=== PATIENT | female | born 1960 | race Caucasian/White ===

== ENCOUNTER 2019-06-17 13:22 | Inpatient (IN) | payer OTHER ==
[~2019-06-17] VITALS: Ht 175.3 cm; Wt 69.2 kg
[2019-06-17] MEDS ORDERED: LURA80 PO (13:44)
[2019-06-17] MEDS ORDERED: ADDE10 PO (13:44)
[2019-06-17] MEDS ORDERED: ALPR0.255 PO (13:44)
[2019-06-17] MEDS ORDERED: METH10 PO (13:44)
[2019-06-17] MEDS ORDERED: TRAZ150 PO (13:44)
[2019-06-17] MEDS ORDERED: GABA-533 PO (13:44)
[2019-06-17 14:27] LABS: BASOPHILS % (AUTO) 0.3 % (0.0-2.0); EOSINOPHILS % (AUTO) 1.6 % (1.0-6.0); HEMATOCRIT 45.1 % (36-46); HEMOGLOBIN 15.1 g/dL (12.0-16.0); LYMPHOCYTES # (AUTO) 1.2 K/uL (1.0-4.8); LYMPHOCYTES % (AUTO) 10.5 % (22.0-44.0); MEAN CORPUSCULAR HEMOGLOBIN 29.2 pg (26.0-34.0); MEAN CORPUSCULAR HGB CONC 33.5 G/dL (31.0-37.0); MEAN CORPUSCULAR VOLUME 87 fL (80-100); MONOCYTES # (AUTO) 0.4 K/uL (0.1-1.0); MONOCYTES % (AUTO) 3.7 % (2.0-9.0); NEUTROPHILS # (AUTO) 9.5 K/uL (1.8-7.7); NEUTROPHILS % (AUTO) 83.9 % (40.0-70.0); PLATELET COUNT (AUTO) 316 K/uL (150-450); RED BLOOD CELL COUNT(AUTO) 5.18 MIL/uL (4.00-5.20); RED CELL DISTRIBUTION WIDTH 14.8 % (11.5-14.5)
[2019-06-17] MEDS ORDERED: LIDOCAINE/PF 1% 30 ML VIAL INJ ONE (14:30)
[2019-06-17 14:40] LABS: ANION GAP 10 mmol/L (8-16); CALCIUM, TOTAL 9.5 mg/dL (8.8-10.5); CARBON DIOXIDE 29 mmol/L (22-29); CHLORIDE 101 mmol/L (98-107); CREATININE 0.73 mg/dL (0.60-1.30); GLOMERULAR FILTR. RATE CALC > 60 mL/min (>60); GLUCOSE,RANDOM 100 mg/dL (70-110); SODIUM SERUM 140 mmol/L (136-145); UREA NITROGEN, BLOOD 13 mg/dL (7-18)
[2019-06-17 14:45] LABS: ALANINE AMINOTRANSFERASE 15 U/L (12-78); ALBUMIN 3.9 g/dL (3.4-5.0); ALKALINE PHOSPHATASE 82 U/L (46-116); ASPARTATE AMINOTRANSFERASE 20 U/L (15-37); BILIRUBIN,TOTAL 0.5 mg/dL (0.1-1.0)
[2019-06-17] MEDS ORDERED: ONDANSETRON HCL 4 MG/2 ML VIAL IVP PRN (14:45)
[2019-06-17] MEDS ORDERED: KETOROLAC TROMETHAMINE 30 MG/ML VIAL IVP ONE (14:45)
[2019-06-17] MEDS ORDERED: 0.9% SODIUM CHLORIDE 10 ML SYRINGE IVP PRN ×2 (14:45→20:15)
[2019-06-17] MEDS ORDERED: ACETAMINOPHEN 325 MG TABLET PO PRN (14:45)
[2019-06-17] MEDS ORDERED: VANCOMYCIN HCL 1 GM/D5% WATER 200 ML IV ONE (14:45)
[2019-06-17 16:32] LABS: AMPHET/METH SCREEN,URINE POSITIVE (NEGATIVE); BARBITURATE SCREEN, URINE NEGATIVE (NEGATIVE); BENZODIAZEPINES SCREEN,URINE POSITIVE (NEGATIVE); CANNABINOID SCREEN,URINE POSITIVE (NEGATIVE); COCAINE SCREEN,URINE NEGATIVE (NEGATIVE); METHADONE SCREEN, URINE NEGATIVE (NEGATIVE); OPIATE SCREEN,URINE POSITIVE (NEGATIVE)
[2019-06-17 16:33] LABS: PHENCYCLIDINE SCREEN,URINE NEGATIVE (NEGATIVE)
[2019-06-17 17:59] VITALS: BP 154/96
[2019-06-17] MEDS ORDERED: OxyCODONE HCL/ACETAMINOPHEN 5-325 MG TABLET PO PRN (18:15)
[2019-06-17] MEDS ORDERED: INFLUENZA VIRUS VACCINE QVS 2019-20 (3YR+)/PF 60 MCG/0.5 ML SYRINGE IM ONE (18:45)
[2019-06-17 20:05] VITALS: BP 117/81
[2019-06-17] MEDS ORDERED: HydrOXYzine PAMOATE 50 MG CAPSULE PO PRN (20:15)
[2019-06-17] MEDS ORDERED: IBUPROFEN 600 MG TABLET PO PRN (20:15)
[2019-06-17] MEDS ORDERED: MAG HYDROX/AL HYDROX/SIMETH ES 30 ML SUSPENSION UDCUP PO PRN (20:15)
[2019-06-17] MEDS ORDERED: CloNIDine HCL 0.1 MG TABLET PO PRN (20:15)
[2019-06-17] MEDS: DOCUSATE SODIUM 100 MG CAPSULE PO SCH (21:00)
[2019-06-17] MEDS: CloNIDine HCL 0.1 MG TABLET PO SCH (21:03)
[2019-06-17] MEDS: OxyCODONE HCL/ACETAMINOPHEN 5-325 MG TABLET PO PRN ×2 (21:06→21:13)
[2019-06-17] MEDS: CefTRIAXone 1 GM/DEXTROSE 50 ML IV SCH (21:10)
[2019-06-17] MEDS: ALPRAZolam 0.25 MG TABLET PO SCH (21:10)
[2019-06-17] MEDS ORDERED: SODIUM CL IRRIG SOLN BOTTLE 250 ML IRRIG ONE (21:15)
[2019-06-17] MEDS: ONDANSETRON HCL 4 MG/2 ML VIAL IVP PRN (21:22)
[2019-06-18] VITALS (7 sets, daily range): BP systolic 95–129; BP diastolic 55–90
[2019-06-18] MEDS: CloNIDine HCL 0.1 MG TABLET PO SCH ×2 (05:17→11:16)
[2019-06-18] MEDS: ALPRAZolam 0.25 MG TABLET PO SCH ×2 (08:00→20:58)
[2019-06-18 08:05] LABS: BASOPHILS % (AUTO) 0.3 % (0.0-2.0); EOSINOPHILS % (AUTO) 2.7 % (1.0-6.0); HEMATOCRIT 38.7 % (36-46); HEMOGLOBIN 12.7 g/dL (12.0-16.0); LYMPHOCYTES # (AUTO) 2.3 K/uL (1.0-4.8); LYMPHOCYTES % (AUTO) 26.6 % (22.0-44.0); MEAN CORPUSCULAR HEMOGLOBIN 28.9 pg (26.0-34.0); MEAN CORPUSCULAR HGB CONC 32.8 G/dL (31.0-37.0); MEAN CORPUSCULAR VOLUME 88 fL (80-100); MONOCYTES # (AUTO) 0.5 K/uL (0.1-1.0); MONOCYTES % (AUTO) 5.6 % (2.0-9.0); NEUTROPHILS # (AUTO) 5.6 K/uL (1.8-7.7); NEUTROPHILS % (AUTO) 64.8 % (40.0-70.0); PLATELET COUNT (AUTO) 285 K/uL (150-450); RED CELL DISTRIBUTION WIDTH 14.9 % (11.5-14.5)
[2019-06-18 08:13] LABS: POTASSIUM 3.9 mmol/L (3.5-5.1)
[2019-06-18] MEDS ORDERED: FAMOTIDINE 10 MG/ML 2 ML VIAL IVP SCH (09:00)
[2019-06-18] MEDS: DOCUSATE SODIUM 100 MG CAPSULE PO SCH (09:00)
[2019-06-18] MEDS: MULTIVITAMINS WITH MINERALS, THERAPEUTIC TABLET PO SCH (11:16)
[2019-06-18] MEDS: OxyCODONE HCL/ACETAMINOPHEN 5-325 MG TABLET PO PRN (11:16)
[2019-06-18] MEDS ORDERED: MAG HYDROX/AL HYDROX/SIMETH ES 30 ML SUSPENSION UDCUP PO PRN (11:45)
[2019-06-18] MEDS ORDERED: DOCUSATE SODIUM 100 MG CAPSULE PO PRN (11:45)
[2019-06-18] MEDS ORDERED: CloNIDine HCL 0.1 MG TABLET PO PRN (11:45)
[2019-06-18] MEDS: SODIUM CHLORIDE 0.9% 1,000 ML IV SCH (12:28)
[2019-06-18] MEDS ORDERED: VANCOMYCIN HCL 1 GM/D5% WATER 200 ML IV ONE ×2 (13:00→22:00)
[2019-06-18] MEDS: LORazepam 2 MG/ML VIAL IVP PRN (16:42)
[2019-06-18] MEDS: CefTRIAXone 1 GM/DEXTROSE 50 ML IV SCH (20:58)
[2019-06-18] MEDS: FAMOTIDINE 10 MG/ML 2 ML VIAL IVP SCH (20:58)
[2019-06-18] MEDS: ChlordiazePOXIDE HCL 25 MG CAPSULE PO PRN (22:17)
[2019-06-19] VITALS (7 sets, daily range): BP systolic 104–126; BP diastolic 56–91
[2019-06-19] MEDS: OxyCODONE HCL/ACETAMINOPHEN 5-325 MG TABLET PO PRN ×2 (00:03→06:45)
[2019-06-19] MEDS: LORazepam 2 MG/ML VIAL IVP PRN ×2 (02:20→10:05)
[2019-06-19] MEDS: VANCOMYCIN HCL 1 GM/D5% WATER 200 ML IV SCH ×2 (07:00→17:38)
[2019-06-19 07:47] LABS: ANION GAP 7 mmol/L (8-16); CALCIUM, TOTAL 8.9 mg/dL (8.8-10.5); CARBON DIOXIDE 30 mmol/L (22-29); CHLORIDE 104 mmol/L (98-107); CREATININE 0.91 mg/dL (0.60-1.30); GLOMERULAR FILTR. RATE CALC > 60 mL/min (>60); GLUCOSE,RANDOM 91 mg/dL (70-110); SODIUM SERUM 141 mmol/L (136-145); UREA NITROGEN, BLOOD 9 mg/dL (7-18)
[2019-06-19 07:52] LABS: BASOPHILS % (AUTO) 0.5 % (0.0-2.0); EOSINOPHILS % (AUTO) 6.3 % (1.0-6.0); HEMATOCRIT 38.7 % (36-46); HEMOGLOBIN 12.9 g/dL (12.0-16.0); LYMPHOCYTES # (AUTO) 2.5 K/uL (1.0-4.8); MEAN CORPUSCULAR HEMOGLOBIN 29.2 pg (26.0-34.0); MEAN CORPUSCULAR HGB CONC 33.4 G/dL (31.0-37.0); MEAN CORPUSCULAR VOLUME 88 fL (80-100); MONOCYTES # (AUTO) 0.4 K/uL (0.1-1.0); MONOCYTES % (AUTO) 5.6 % (2.0-9.0); NEUTROPHILS # (AUTO) 4.1 K/uL (1.8-7.7); NEUTROPHILS % (AUTO) 54.6 % (40.0-70.0); PLATELET COUNT (AUTO) 250 K/uL (150-450); RED BLOOD CELL COUNT(AUTO) 4.42 MIL/uL (4.00-5.20); RED CELL DISTRIBUTION WIDTH 15.3 % (11.5-14.5)
[2019-06-19] MEDS: MULTIVITAMINS WITH MINERALS, THERAPEUTIC TABLET PO SCH (08:24)
[2019-06-19] MEDS: ALPRAZolam 0.25 MG TABLET PO SCH ×2 (08:24→20:36)
[2019-06-19] MEDS: FOLIC ACID 1 MG TABLET PO SCH (08:24)
[2019-06-19] MEDS: ACETAMINOPHEN 325 MG TABLET PO PRN (08:24)
[2019-06-19] MEDS: FAMOTIDINE 10 MG/ML 2 ML VIAL IVP SCH ×2 (08:24→20:36)
[2019-06-19] MEDS: THIAMINE HCL 100 MG TABLET PO SCH (08:25)
[2019-06-19] MEDS: SODIUM CHLORIDE 0.9% 1,000 ML IV SCH (10:05)
[2019-06-19] MEDS ORDERED: DICYCLOMINE HCL 10 MG CAPSULE PO PRN (11:45)
[2019-06-19] MEDS ORDERED: LURASIDONE HCL 40 MG TABLET PO ONE (12:30)
[2019-06-19] MEDS: ESCITALOPRAM OXALATE 10 MG TABLET PO SCH (12:58)
[2019-06-19] MEDS: NICOTINE 21 MG/24 HOUR PATCH TD SCH (12:59)
[2019-06-19] MEDS: GABAPENTIN 100 MG CAPSULE PO SCH ×2 (16:29→20:36)
[2019-06-19] MEDS: IBUPROFEN 400 MG TABLET PO PRN (16:29)
[2019-06-19] MEDS: ChlordiazePOXIDE HCL 25 MG CAPSULE PO PRN (16:45)
[2019-06-19] MEDS: CefTRIAXone 1 GM/DEXTROSE 50 ML IV SCH (20:35)
[2019-06-20] VITALS (7 sets, daily range): BP systolic 117–148; BP diastolic 19–96
[2019-06-20] MEDS: IBUPROFEN 400 MG TABLET PO PRN (00:54)
[2019-06-20 04:06] LABS: HIV 1-2 SCREEN 4TH GEN W/RFLX Non Reactive (Non Reactive)
[2019-06-20] MEDS: ACETAMINOPHEN 325 MG TABLET PO PRN (05:18)
[2019-06-20] MEDS: VANCOMYCIN HCL 1 GM/D5% WATER 200 ML IV SCH ×2 (06:29→18:26)
[2019-06-20 07:56] LABS: BASOPHILS % (AUTO) 0.5 % (0.0-2.0); HEMATOCRIT 36.7 % (36-46); HEMOGLOBIN 12.5 g/dL (12.0-16.0); LYMPHOCYTES % (AUTO) 26.1 % (22.0-44.0); MEAN CORPUSCULAR HEMOGLOBIN 29.9 pg (26.0-34.0); MEAN CORPUSCULAR VOLUME 88 fL (80-100); MONOCYTES # (AUTO) 0.5 K/uL (0.1-1.0); NEUTROPHILS # (AUTO) 4.7 K/uL (1.8-7.7); NEUTROPHILS % (AUTO) 60.4 % (40.0-70.0); PLATELET COUNT (AUTO) 243 K/uL (150-450); RED BLOOD CELL COUNT(AUTO) 4.18 MIL/uL (4.00-5.20); RED CELL DISTRIBUTION WIDTH 14.9 % (11.5-14.5)
[2019-06-20] MEDS: MULTIVITAMINS WITH MINERALS, THERAPEUTIC TABLET PO SCH (08:03)
[2019-06-20] MEDS: LURASIDONE HCL 40 MG TABLET PO SCH (08:03)
[2019-06-20] MEDS: ESCITALOPRAM OXALATE 10 MG TABLET PO SCH (08:03)
[2019-06-20] MEDS: ALPRAZolam 0.25 MG TABLET PO SCH ×2 (08:03→20:12)
[2019-06-20] MEDS: THIAMINE HCL 100 MG TABLET PO SCH (08:03)
[2019-06-20] MEDS: NICOTINE 21 MG/24 HOUR PATCH TD SCH (08:04)
[2019-06-20] MEDS: SODIUM CHLORIDE 0.9% 1,000 ML IV SCH (08:05)
[2019-06-20] MEDS: FAMOTIDINE 10 MG/ML 2 ML VIAL IVP SCH ×2 (08:05→23:27)
[2019-06-20] MEDS: GABAPENTIN 100 MG CAPSULE PO SCH ×3 (08:05→20:12)
[2019-06-20] MEDS: FOLIC ACID 1 MG TABLET PO SCH (08:06)
[2019-06-20 08:22] LABS: CALCIUM, TOTAL 8.4 mg/dL (8.8-10.5); CREATININE 0.96 mg/dL (0.60-1.30); POTASSIUM 4.3 mmol/L (3.5-5.1); VANCOMYCIN,RANDOM 24.3 mcg/mL (25.0-50.0)
[2019-06-21 05:10] VITALS: BP 129/89
[2019-06-21] MEDS: IBUPROFEN 400 MG TABLET PO PRN ×2 (05:58→16:39)
[2019-06-21] MEDS: VANCOMYCIN HCL 1 GM/D5% WATER 200 ML IV SCH ×2 (07:09→19:18)
[2019-06-21 07:40] VITALS: BP 154/86
[2019-06-21 08:07] LABS: BASOPHILS % (AUTO) 0.7 % (0.0-2.0); EOSINOPHILS % (AUTO) 8.5 % (1.0-6.0); HEMATOCRIT 37.7 % (36-46); HEMOGLOBIN 12.5 g/dL (12.0-16.0); MEAN CORPUSCULAR HEMOGLOBIN 29.2 pg (26.0-34.0); MEAN CORPUSCULAR HGB CONC 33.2 G/dL (31.0-37.0); MEAN CORPUSCULAR VOLUME 88 fL (80-100); MONOCYTES # (AUTO) 0.5 K/uL (0.1-1.0); MONOCYTES % (AUTO) 6.7 % (2.0-9.0); NEUTROPHILS # (AUTO) 4.1 K/uL (1.8-7.7); NEUTROPHILS % (AUTO) 56.1 % (40.0-70.0); PLATELET COUNT (AUTO) 247 K/uL (150-450); RED CELL DISTRIBUTION WIDTH 14.9 % (11.5-14.5)
[2019-06-21] MEDS ORDERED: FAMOTIDINE 20 MG TABLET ONE (08:11)
[2019-06-21 08:19] LABS: ANION GAP 3 mmol/L (8-16); CALCIUM, TOTAL 8.9 mg/dL (8.8-10.5); CARBON DIOXIDE 34 mmol/L (22-29); CHLORIDE 100 mmol/L (98-107); CREATININE 0.76 mg/dL (0.60-1.30); GLOMERULAR FILTR. RATE CALC > 60 mL/min (>60); GLUCOSE,RANDOM 96 mg/dL (70-110); POTASSIUM 4.2 mmol/L (3.5-5.1); SODIUM SERUM 137 mmol/L (136-145); UREA NITROGEN, BLOOD 10 mg/dL (7-18); VANCOMYCIN,RANDOM 11.4 mcg/mL (25.0-50.0)
[2019-06-21] MEDS: FOLIC ACID 1 MG TABLET PO SCH (08:21)
[2019-06-21] MEDS: ESCITALOPRAM OXALATE 10 MG TABLET PO SCH (08:21)
[2019-06-21] MEDS: THIAMINE HCL 100 MG TABLET PO SCH (08:22)
[2019-06-21] MEDS: MULTIVITAMINS WITH MINERALS, THERAPEUTIC TABLET PO SCH (08:22)
[2019-06-21] MEDS: ALPRAZolam 0.25 MG TABLET PO SCH (08:22)
[2019-06-21] MEDS: GABAPENTIN 100 MG CAPSULE PO SCH ×3 (08:22→20:55)
[2019-06-21] MEDS: NICOTINE 21 MG/24 HOUR PATCH TD SCH (08:23)
[2019-06-21] MEDS: FAMOTIDINE 10 MG/ML 2 ML VIAL IVP SCH ×2 (08:34→20:55)
[2019-06-21] MEDS: LURASIDONE HCL 40 MG TABLET PO SCH (08:34)
[2019-06-21 11:20] VITALS: BP 132/91
[2019-06-21 15:20] VITALS: BP 102/82
[2019-06-21 19:28] VITALS: BP 128/88
[2019-06-21] MEDS: LORATADINE 10 MG TABLET PO PRN (21:38)
[2019-06-21 23:48] VITALS: BP 128/86
[2019-06-22 04:52] VITALS: BP 117/87
[2019-06-22] MEDS: VANCOMYCIN HCL 1 GM/D5% WATER 200 ML IV SCH ×2 (06:19→18:06)
[2019-06-22 07:31] LABS: ANION GAP 4 mmol/L (8-16); CALCIUM, TOTAL 8.9 mg/dL (8.8-10.5); CARBON DIOXIDE 33 mmol/L (22-29); CHLORIDE 100 mmol/L (98-107); CREATININE 0.92 mg/dL (0.60-1.30); GLOMERULAR FILTR. RATE CALC > 60 mL/min (>60); GLUCOSE,RANDOM 130 mg/dL (70-110); POTASSIUM 4.1 mmol/L (3.5-5.1); SODIUM SERUM 137 mmol/L (136-145); UREA NITROGEN, BLOOD 15 mg/dL (7-18)
[2019-06-22 08:06] VITALS: BP 131/82
[2019-06-22] MEDS: FOLIC ACID 1 MG TABLET PO SCH (08:32)
[2019-06-22] MEDS: ESCITALOPRAM OXALATE 10 MG TABLET PO SCH (08:32)
[2019-06-22] MEDS: MULTIVITAMINS WITH MINERALS, THERAPEUTIC TABLET PO SCH (08:33)
[2019-06-22] MEDS: GABAPENTIN 100 MG CAPSULE PO SCH ×3 (08:33→21:09)
[2019-06-22] MEDS: THIAMINE HCL 100 MG TABLET PO SCH (08:33)
[2019-06-22] MEDS: NICOTINE 21 MG/24 HOUR PATCH TD SCH (08:34)
[2019-06-22] MEDS: FAMOTIDINE 10 MG/ML 2 ML VIAL IVP SCH ×2 (08:34→21:09)
[2019-06-22] MEDS: LURASIDONE HCL 40 MG TABLET PO SCH (08:39)
[2019-06-22 11:24] VITALS: BP 117/73
[2019-06-22] MEDS ORDERED: SENNA/DOCUSATE SODIUM 8.6-50 MG TABLET PO PRN (14:00)
[2019-06-22] MEDS: DOCUSATE SODIUM 100 MG CAPSULE PO SCH ×2 (15:00→21:09)
[2019-06-22] MEDS: ESTRADIOL 1 MG TABLET PO SCH (15:00)
[2019-06-22 16:26] VITALS: BP 121/77
[2019-06-22 20:15] VITALS: BP 120/77
[2019-06-22] MEDS: IBUPROFEN 400 MG TABLET PO PRN (21:18)
[2019-06-22] MEDS: DIAZEPAM 5 MG TABLET PO PRN (21:18)
[2019-06-22] MEDS: LORATADINE 10 MG TABLET PO PRN (21:19)
[2019-06-22 23:07] VITALS: BP 113/81
[2019-06-23] MEDS ORDERED: SODIUM CHLORIDE 0.9% 1,000 ML ONE (01:11)
[2019-06-23 04:08] VITALS: BP 135/99
[2019-06-23] MEDS: DIAZEPAM 5 MG TABLET PO PRN ×3 (04:35→18:08)
[2019-06-23] MEDS: VANCOMYCIN HCL 1 GM/D5% WATER 200 ML IV SCH ×2 (06:48→18:08)
[2019-06-23 07:16] LABS: CALCIUM, TOTAL 8.8 mg/dL (8.8-10.5); CREATININE 0.97 mg/dL (0.60-1.30); POTASSIUM 4.3 mmol/L (3.5-5.1)
[2019-06-23 07:40] VITALS: BP 134/91
[2019-06-23] MEDS: NICOTINE 21 MG/24 HOUR PATCH TD SCH (08:17)
[2019-06-23] MEDS: ESTRADIOL 1 MG TABLET PO SCH (08:18)
[2019-06-23] MEDS: ESCITALOPRAM OXALATE 10 MG TABLET PO SCH (08:18)
[2019-06-23] MEDS: DOCUSATE SODIUM 100 MG CAPSULE PO SCH ×3 (08:18→20:16)
[2019-06-23] MEDS: MULTIVITAMINS WITH MINERALS, THERAPEUTIC TABLET PO SCH (08:18)
[2019-06-23] MEDS: THIAMINE HCL 100 MG TABLET PO SCH (08:18)
[2019-06-23] MEDS: LURASIDONE HCL 40 MG TABLET PO SCH (08:18)
[2019-06-23] MEDS: GABAPENTIN 100 MG CAPSULE PO SCH ×3 (08:18→20:04)
[2019-06-23] MEDS: FAMOTIDINE 10 MG/ML 2 ML VIAL IVP SCH ×2 (08:18→20:05)
[2019-06-23] MEDS: FOLIC ACID 1 MG TABLET PO SCH (08:18)
[2019-06-23 11:39] VITALS: BP 120/83
[2019-06-23 15:27] VITALS: BP 137/90
[2019-06-23] MEDS ORDERED: MAGNESIUM HYDROXIDE SUSPENSION 30 ML UDCUP PO ONE (16:00)
[2019-06-23] MEDS: LORATADINE 10 MG TABLET PO PRN (20:04)
[2019-06-23] MEDS: IBUPROFEN 400 MG TABLET PO PRN (20:05)
[2019-06-23 20:18] VITALS: BP 132/95
[2019-06-24] VITALS (7 sets, daily range): BP systolic 106–152; BP diastolic 79–107
[2019-06-24] MEDS: DIAZEPAM 5 MG TABLET PO PRN ×3 (00:39→16:20)
[2019-06-24] MEDS: IBUPROFEN 400 MG TABLET PO PRN (00:45)
[2019-06-24] MEDS: ONDANSETRON HCL 4 MG/2 ML VIAL IVP PRN (04:03)
[2019-06-24] MEDS: VANCOMYCIN HCL 1 GM/D5% WATER 200 ML IV SCH ×2 (07:00→18:25)
[2019-06-24 07:42] LABS: CREATININE 1.08 mg/dL (0.60-1.30); VANCOMYCIN,RANDOM 10.2 mcg/mL (25.0-50.0)
[2019-06-24] MEDS: GABAPENTIN 100 MG CAPSULE PO SCH (08:10)
[2019-06-24] MEDS: NICOTINE 21 MG/24 HOUR PATCH TD SCH (08:11)
[2019-06-24] MEDS: MULTIVITAMINS WITH MINERALS, THERAPEUTIC TABLET PO SCH (08:11)
[2019-06-24] MEDS: LORATADINE 10 MG TABLET PO PRN (08:11)
[2019-06-24] MEDS: LURASIDONE HCL 40 MG TABLET PO SCH (08:11)
[2019-06-24] MEDS: FAMOTIDINE 10 MG/ML 2 ML VIAL IVP SCH (08:11)
[2019-06-24] MEDS: ESCITALOPRAM OXALATE 10 MG TABLET PO SCH (08:11)
[2019-06-24] MEDS: THIAMINE HCL 100 MG TABLET PO SCH (08:11)
[2019-06-24] MEDS: ESTRADIOL 1 MG TABLET PO SCH (08:11)
[2019-06-24] MEDS: FOLIC ACID 1 MG TABLET PO SCH (08:11)
[2019-06-24] MEDS: DOCUSATE SODIUM 100 MG CAPSULE PO SCH ×2 (08:16→20:28)
[2019-06-24] MEDS: GABAPENTIN 300 MG CAPSULE PO SCH ×2 (16:20→20:26)
[2019-06-25] MEDS: DIAZEPAM 5 MG TABLET PO PRN ×3 (00:04→16:39)
[2019-06-25] MEDS: FAMOTIDINE 10 MG/ML 2 ML VIAL IVP SCH ×3 (00:05→21:19)
[2019-06-25 05:52] VITALS: BP 111/82
[2019-06-25] MEDS: VANCOMYCIN HCL 1 GM/D5% WATER 200 ML IV SCH ×2 (06:27→18:24)
[2019-06-25] MEDS: IBUPROFEN 400 MG TABLET PO PRN (06:38)
[2019-06-25 07:54] VITALS: BP 105/73
[2019-06-25] MEDS: ESTRADIOL 1 MG TABLET PO SCH (08:49)
[2019-06-25] MEDS: NICOTINE 21 MG/24 HOUR PATCH TD SCH (08:49)
[2019-06-25] MEDS: LamoTRIgine 25 MG TABLET PO SCH (08:50)
[2019-06-25] MEDS: GABAPENTIN 300 MG CAPSULE PO SCH ×3 (08:50→21:17)
[2019-06-25] MEDS: MULTIVITAMINS WITH MINERALS, THERAPEUTIC TABLET PO SCH (08:50)
[2019-06-25] MEDS: CITALOPRAM HYDROBROMIDE 20 MG TABLET PO SCH (08:50)
[2019-06-25] MEDS: DOCUSATE SODIUM 100 MG CAPSULE PO SCH ×2 (08:50→21:00)
[2019-06-25] MEDS: THIAMINE HCL 100 MG TABLET PO SCH (08:50)
[2019-06-25] MEDS: FOLIC ACID 1 MG TABLET PO SCH (08:50)
[2019-06-25 11:36] VITALS: BP 103/71
[2019-06-25 15:32] VITALS: BP 119/88
[2019-06-25 19:30] VITALS: BP 114/76
[2019-06-26] MEDS: DIAZEPAM 5 MG TABLET PO PRN ×2 (01:23→20:35)
[2019-06-26] MEDS: IBUPROFEN 400 MG TABLET PO PRN (04:18)
[2019-06-26] MEDS: VANCOMYCIN HCL 1 GM/D5% WATER 200 ML IV SCH ×2 (06:47→18:38)
[2019-06-26 08:02] LABS: CALCIUM, TOTAL 9.1 mg/dL (8.8-10.5); CREATININE 0.95 mg/dL (0.60-1.30); POTASSIUM 4.4 mmol/L (3.5-5.1)
[2019-06-26 08:03] VITALS: BP 107/77
[2019-06-26] MEDS: FOLIC ACID 1 MG TABLET PO SCH (08:26)
[2019-06-26] MEDS: MULTIVITAMINS WITH MINERALS, THERAPEUTIC TABLET PO SCH (08:26)
[2019-06-26] MEDS: GABAPENTIN 300 MG CAPSULE PO SCH ×3 (08:26→20:34)
[2019-06-26] MEDS: DOCUSATE SODIUM 100 MG CAPSULE PO SCH ×2 (08:26→20:34)
[2019-06-26] MEDS: CITALOPRAM HYDROBROMIDE 20 MG TABLET PO SCH (08:26)
[2019-06-26] MEDS: LamoTRIgine 25 MG TABLET PO SCH (08:27)
[2019-06-26] MEDS: NICOTINE 21 MG/24 HOUR PATCH TD SCH (08:27)
[2019-06-26] MEDS: THIAMINE HCL 100 MG TABLET PO SCH (08:27)
[2019-06-26] MEDS: FAMOTIDINE 10 MG/ML 2 ML VIAL IVP SCH ×2 (08:28→20:35)
[2019-06-26] MEDS: ESTRADIOL 1 MG TABLET PO SCH (08:28)
[2019-06-26 11:58] VITALS: BP 133/88
[2019-06-26 16:57] VITALS: BP 108/71
[2019-06-26 20:49] VITALS: BP 123/79
[2019-06-27] MEDS: DiphenhydrAMINE HCL 25 MG CAPSULE PO PRN ×2 (00:27→22:21)
[2019-06-27 00:42] VITALS: BP 100/69
[2019-06-27 04:42] VITALS: BP 104/71
[2019-06-27] MEDS: VANCOMYCIN HCL 1 GM/D5% WATER 200 ML IV SCH ×2 (06:08→18:36)
[2019-06-27 07:45] VITALS: BP 103/76
[2019-06-27] MEDS: NICOTINE 21 MG/24 HOUR PATCH TD SCH (09:10)
[2019-06-27] MEDS: ESTRADIOL 1 MG TABLET PO SCH (09:11)
[2019-06-27] MEDS: DOCUSATE SODIUM 100 MG CAPSULE PO SCH ×2 (09:11→20:28)
[2019-06-27] MEDS: GABAPENTIN 300 MG CAPSULE PO SCH ×3 (09:12→20:29)
[2019-06-27] MEDS: CITALOPRAM HYDROBROMIDE 20 MG TABLET PO SCH (09:12)
[2019-06-27] MEDS: FAMOTIDINE 10 MG/ML 2 ML VIAL IVP SCH ×2 (09:12→20:29)
[2019-06-27] MEDS: FOLIC ACID 1 MG TABLET PO SCH (09:12)
[2019-06-27] MEDS: MULTIVITAMINS WITH MINERALS, THERAPEUTIC TABLET PO SCH (09:12)
[2019-06-27] MEDS: THIAMINE HCL 100 MG TABLET PO SCH (09:12)
[2019-06-27] MEDS: LamoTRIgine 25 MG TABLET PO SCH (09:12)
[2019-06-27] MEDS: DIAZEPAM 5 MG TABLET PO PRN ×2 (11:17→20:32)
[2019-06-27 11:53] VITALS: BP 122/75
[2019-06-27 15:44] VITALS: BP 116/71
[2019-06-27 21:00] VITALS: BP 131/89
[2019-06-27] MEDS: IBUPROFEN 400 MG TABLET PO PRN (22:22)
[2019-06-28] VITALS (7 sets, daily range): BP systolic 100–132; BP diastolic 68–89
[2019-06-28] MEDS: VANCOMYCIN HCL 1 GM/D5% WATER 200 ML IV SCH ×2 (05:16→18:01)
[2019-06-28] MEDS: IBUPROFEN 400 MG TABLET PO PRN ×2 (05:16→18:25)
[2019-06-28 06:58] LABS: CREATININE 0.97 mg/dL (0.60-1.30); POTASSIUM 4.2 mmol/L (3.5-5.1); VANCOMYCIN,RANDOM 12.1 mcg/mL (25.0-50.0)
[2019-06-28] MEDS: FAMOTIDINE 10 MG/ML 2 ML VIAL IVP SCH ×2 (09:44→20:11)
[2019-06-28] MEDS: THIAMINE HCL 100 MG TABLET PO SCH (09:44)
[2019-06-28] MEDS: ESTRADIOL 1 MG TABLET PO SCH (09:45)
[2019-06-28] MEDS: GABAPENTIN 300 MG CAPSULE PO SCH ×3 (09:45→20:11)
[2019-06-28] MEDS: CITALOPRAM HYDROBROMIDE 20 MG TABLET PO SCH (09:45)
[2019-06-28] MEDS: LamoTRIgine 25 MG TABLET PO SCH (09:45)
[2019-06-28] MEDS: FOLIC ACID 1 MG TABLET PO SCH (09:45)
[2019-06-28] MEDS: MULTIVITAMINS WITH MINERALS, THERAPEUTIC TABLET PO SCH (09:45)
[2019-06-28] MEDS: DOCUSATE SODIUM 100 MG CAPSULE PO SCH ×2 (09:46→20:11)
[2019-06-28] MEDS: NICOTINE 21 MG/24 HOUR PATCH TD SCH (15:57)
[2019-06-28] MEDS: DIAZEPAM 5 MG TABLET PO PRN (18:57)
[2019-06-28] MEDS: DiphenhydrAMINE HCL 25 MG CAPSULE PO PRN (21:02)
[2019-06-28] MEDS: ACETAMINOPHEN 325 MG TABLET PO PRN (23:11)
[2019-06-29 05:08] VITALS: BP 114/79
[2019-06-29] MEDS ORDERED: SODIUM CHLORIDE 0.9% 500 ML IV ONE (05:53)
[2019-06-29] MEDS: VANCOMYCIN HCL 1 GM/D5% WATER 200 ML IV SCH ×2 (06:02→18:11)
[2019-06-29] MEDS: IBUPROFEN 400 MG TABLET PO PRN ×2 (06:02→20:14)
[2019-06-29] MEDS: DIAZEPAM 5 MG TABLET PO PRN (06:10)
[2019-06-29 08:00] VITALS: BP 125/85
[2019-06-29 09:32] LABS: CALCIUM, TOTAL 8.8 mg/dL (8.8-10.5); CREATININE 1.12 mg/dL (0.60-1.30)
[2019-06-29] MEDS: FAMOTIDINE 10 MG/ML 2 ML VIAL IVP SCH ×2 (09:54→20:14)
[2019-06-29] MEDS: FOLIC ACID 1 MG TABLET PO SCH (09:56)
[2019-06-29] MEDS: THIAMINE HCL 100 MG TABLET PO SCH (09:56)
[2019-06-29] MEDS: MULTIVITAMINS WITH MINERALS, THERAPEUTIC TABLET PO SCH (09:56)
[2019-06-29] MEDS: ESTRADIOL 1 MG TABLET PO SCH (09:56)
[2019-06-29] MEDS: CITALOPRAM HYDROBROMIDE 20 MG TABLET PO SCH (09:57)
[2019-06-29] MEDS: DOCUSATE SODIUM 100 MG CAPSULE PO SCH ×2 (09:57→20:14)
[2019-06-29] MEDS: LamoTRIgine 25 MG TABLET PO SCH (09:57)
[2019-06-29] MEDS: GABAPENTIN 300 MG CAPSULE PO SCH ×3 (09:57→20:15)
[2019-06-29] MEDS: NICOTINE 21 MG/24 HOUR PATCH TD SCH (09:58)
[2019-06-29 11:24] VITALS: BP 133/90
[2019-06-29] MEDS ORDERED: DIAZEPAM 5 MG TABLET PO ONE (14:45)
[2019-06-29 15:54] VITALS: BP 127/108
[2019-06-29] MEDS ORDERED: DIPH50 PO (17:20)
[2019-06-29] MEDS ORDERED: GABA-531 PO (17:20)
[2019-06-29] MEDS ORDERED: LAMO25TA25 PO (17:22)
[2019-06-29] MEDS ORDERED: CITA-106 PO (17:22)
[2019-06-29] MEDS ORDERED: BACTDSB PO (17:23)
[2019-06-29] MEDS ORDERED: ESTR-28 PO (17:23)
[2019-06-29 20:05] VITALS: BP 127/85
[2019-06-29] MEDS ORDERED: DiphenhydrAMINE HCL 25 MG CAPSULE PO SCH (21:00)
[2019-06-29 22:35] LABS: APPEARANCE,URINE CLEAR (CLEAR); BILIRUBIN,URINE NEGATIVE (NEGATIVE); GLUCOSE, URINE (UA) NEGATIVE (NEGATIVE); KETONES,URINE NEGATIVE (NEGATIVE); LEUKOCYTE ESTERASE ,URINE NEGATIVE (NEGATIVE); NITRATE,URINE NEGATIVE (NEGATIVE); OCCULT BLOOD,URINE NEGATIVE (NEGATIVE); PH,URINE 7.5 (5.0-8.0); PROTEIN,URINE NEGATIVE (NEGATIVE); UROBILINOGEN,URINE 0.2 mg/dL (<=1.0)
[2019-06-30] MEDS ORDERED: SODIUM CHLORIDE 0.9% 100 ML ONE (03:26)
[2019-06-30] MEDS ORDERED: IOVERSOL 350 MG/ML 100 ML VIAL ONE (03:26)
[2019-06-30 04:33] VITALS: BP 135/96
[2019-06-30] MEDS: VANCOMYCIN HCL 1 GM/D5% WATER 200 ML IV SCH (06:08)
[2019-06-30] MEDS: IBUPROFEN 400 MG TABLET PO PRN ×2 (06:08→14:50)
[2019-06-30] MEDS ORDERED: DIAZEPAM 5 MG TABLET PO ONE (06:30)
[2019-06-30 07:37] LABS: BASOPHILS % (AUTO) 0.7 % (0.0-2.0); HEMATOCRIT 38.4 % (36-46); HEMOGLOBIN 12.9 g/dL (12.0-16.0); LYMPHOCYTES # (AUTO) 1.6 K/uL (1.0-4.8); LYMPHOCYTES % (AUTO) 21.6 % (22.0-44.0); MEAN CORPUSCULAR HEMOGLOBIN 29.2 pg (26.0-34.0); MEAN CORPUSCULAR HGB CONC 33.6 G/dL (31.0-37.0); MEAN CORPUSCULAR VOLUME 87 fL (80-100); MONOCYTES # (AUTO) 0.5 K/uL (0.1-1.0); MONOCYTES % (AUTO) 7.2 % (2.0-9.0); NEUTROPHILS # (AUTO) 4.6 K/uL (1.8-7.7); NEUTROPHILS % (AUTO) 60.5 % (40.0-70.0); PLATELET COUNT (AUTO) 212 K/uL (150-450); RED BLOOD CELL COUNT(AUTO) 4.41 MIL/uL (4.00-5.20)
[2019-06-30 07:58] LABS: ALBUMIN 3.4 g/dL (3.4-5.0); BILIRUBIN,TOTAL 0.2 mg/dL (0.1-1.0); CALCIUM, TOTAL 8.6 mg/dL (8.8-10.5); CREATININE 1.01 mg/dL (0.60-1.30); MAGNESIUM 1.8 mg/dL (1.80-2.40); POTASSIUM 3.8 mmol/L (3.5-5.1); TOTAL PROTEIN, SERUM 6.9 g/dL (6.4-8.2)
[2019-06-30 08:00] VITALS: BP 118/84
[2019-06-30] MEDS: DOCUSATE SODIUM 100 MG CAPSULE PO SCH (09:00)
[2019-06-30] MEDS: LamoTRIgine 25 MG TABLET PO SCH (10:02)
[2019-06-30] MEDS: THIAMINE HCL 100 MG TABLET PO SCH (10:02)
[2019-06-30] MEDS: NICOTINE 21 MG/24 HOUR PATCH TD SCH (10:02)
[2019-06-30] MEDS: ESTRADIOL 1 MG TABLET PO SCH (10:02)
[2019-06-30] MEDS: MULTIVITAMINS WITH MINERALS, THERAPEUTIC TABLET PO SCH (10:03)
[2019-06-30] MEDS: GABAPENTIN 300 MG CAPSULE PO SCH (10:03)
[2019-06-30] MEDS: FAMOTIDINE 10 MG/ML 2 ML VIAL IVP SCH (10:03)
[2019-06-30] MEDS: CITALOPRAM HYDROBROMIDE 20 MG TABLET PO SCH (10:03)
[2019-06-30] MEDS: FOLIC ACID 1 MG TABLET PO SCH (10:03)
[2019-06-30 11:51] VITALS: BP 108/104
== END 2019-06-30 14:55 | DRG 897 ==
LOC: EMS 13:23 → 6S 15:45
PROVIDERS: ADMIT Internal Medicine; ATTEND Internal Medicine
DX: F11.10 Opioid abuse, uncomplicated (principal); L02.31 Cutaneous abscess of buttock; F31.4 Bipolar disorder, current episode depressed, severe, without psychotic features; F13.20 Sedative, hypnotic or anxiolytic dependence, uncomplicated; G89.29 Other chronic pain; M54.9 Dorsalgia, unspecified; B19.20 Unspecified viral hepatitis C without hepatic coma; F17.210 Nicotine dependence, cigarettes, uncomplicated; F15.10 Other stimulant abuse, uncomplicated; N95.1 Menopausal and female climacteric states
CPT/HCPCS: 74177; 74181; 83735; 84145; 87040; 87070; 87081; 87205; 87389; 93306; 96365; G0480; J0696; J1885; J2060; J2405; J3370; J3490; J7030; J7040; J7050

== ENCOUNTER 2019-07-09 02:12 | Inpatient (IN) | payer OTHER ==
[~2019-07-09] VITALS: Ht 175.3 cm; Wt 68.4 kg
[~2019-07-09 02:12] MED LIST: BACTDSB PO; CITA-106 PO; DIPH50 PO; ESTR-28 PO; GABA-531 PO; LAMO25TA25 PO
[2019-07-09] MEDS ORDERED: ONDANSETRON HCL 4 MG TABLET PO ONE (03:00)
[2019-07-09] MEDS ORDERED: IBUPROFEN 600 MG TABLET PO ONE (03:00)
[2019-07-09] MEDS ORDERED: ACETAMINOPHEN 500 MG TABLET PO ONE (03:00)
[2019-07-09 03:22] LABS: AMPHET/METH SCREEN,URINE NEGATIVE (NEGATIVE); BARBITURATE SCREEN, URINE NEGATIVE (NEGATIVE); BENZODIAZEPINES SCREEN,URINE POSITIVE (NEGATIVE); CANNABINOID SCREEN,URINE NEGATIVE (NEGATIVE); COCAINE SCREEN,URINE NEGATIVE (NEGATIVE); METHADONE SCREEN, URINE NEGATIVE (NEGATIVE); OPIATE SCREEN,URINE POSITIVE (NEGATIVE); PHENCYCLIDINE SCREEN,URINE NEGATIVE (NEGATIVE)
[2019-07-09 03:48] LABS: BASOPHILS % (AUTO) 0.3 % (0.0-2.0); EOSINOPHILS % (AUTO) 0.1 % (1.0-6.0); HEMATOCRIT 44.2 % (36-46); HEMOGLOBIN 14.7 g/dL (12.0-16.0); LYMPHOCYTES # (AUTO) 2.3 K/uL (1.0-4.8); LYMPHOCYTES % (AUTO) 16.2 % (22.0-44.0); MEAN CORPUSCULAR HEMOGLOBIN 29.1 pg (26.0-34.0); MEAN CORPUSCULAR HGB CONC 33.2 G/dL (31.0-37.0); MEAN CORPUSCULAR VOLUME 88 fL (80-100); MONOCYTES # (AUTO) 0.7 K/uL (0.1-1.0); MONOCYTES % (AUTO) 4.8 % (2.0-9.0); NEUTROPHILS # (AUTO) 10.9 K/uL (1.8-7.7); NEUTROPHILS % (AUTO) 78.6 % (40.0-70.0); PLATELET COUNT (AUTO) 356 K/uL (150-450); RED BLOOD CELL COUNT(AUTO) 5.05 MIL/uL (4.00-5.20)
[2019-07-09 03:59] LABS: ANION GAP 9 mmol/L (8-16); CALCIUM, TOTAL 9.3 mg/dL (8.8-10.5); CARBON DIOXIDE 28 mmol/L (22-29); CHLORIDE 100 mmol/L (98-107); CREATININE 1.11 mg/dL (0.60-1.30); GLOMERULAR FILTR. RATE CALC 50 mL/min (>60); GLUCOSE,RANDOM 107 mg/dL (70-110); POTASSIUM 3.8 mmol/L (3.5-5.1); SODIUM SERUM 137 mmol/L (136-145); UREA NITROGEN, BLOOD 15 mg/dL (7-18)
[2019-07-09 04:11] LABS: ALANINE AMINOTRANSFERASE 22 U/L (12-78); ALBUMIN 4.1 g/dL (3.4-5.0); ALKALINE PHOSPHATASE 68 U/L (46-116); ASPARTATE AMINOTRANSFERASE 14 U/L (15-37); BILIRUBIN,TOTAL 0.5 mg/dL (0.1-1.0); HCG,QUANTITATIVE 2 mIU/mL (0-6); TOTAL PROTEIN, SERUM 7.9 g/dL (6.4-8.2)
[2019-07-09] MEDS ORDERED: LORazepam 1 MG TABLET PO ONE (05:00)
[2019-07-09] MEDS ORDERED: 0.9% SODIUM CHLORIDE 10 ML SYRINGE IVP PRN (05:15)
[2019-07-09] MEDS ORDERED: ACETAMINOPHEN 325 MG TABLET PO PRN ×2 (05:15→21:45)
[2019-07-09 06:30] VITALS: BP 116/70
[2019-07-09 07:56] VITALS: BP 104/68
[2019-07-09 11:32] VITALS: BP 111/75
[2019-07-09] MEDS: ONDANSETRON HCL 4 MG/2 ML VIAL IVP PRN ×2 (11:36→17:38)
[2019-07-09 15:44] VITALS: BP 114/72
[2019-07-09] MEDS ORDERED: MAG HYDROX/AL HYDROX/SIMETH ES 30 ML SUSPENSION UDCUP PO PRN (17:15)
[2019-07-09] MEDS ORDERED: DICYCLOMINE HCL 10 MG CAPSULE PO PRN (17:15)
[2019-07-09] MEDS ORDERED: BACLOFEN 10 MG TABLET PO PRN (17:15)
[2019-07-09] MEDS ORDERED: TraZODone HCL 50 MG TABLET PO PRN (17:15)
[2019-07-09] MEDS ORDERED: HydrOXYzine PAMOATE 50 MG CAPSULE PO PRN (17:15)
[2019-07-09] MEDS ORDERED: LOPERAMIDE HCL 2 MG/15 ML SUSPENSION UDCUP PO PRN (17:15)
[2019-07-09] MEDS ORDERED: CloNIDine HCL 0.1 MG TABLET PO PRN ×2 (17:15)
[2019-07-09] MEDS ORDERED: LORazepam 2 MG/ML VIAL IVP PRN (17:30)
[2019-07-09] MEDS: SODIUM CHLORIDE 0.45% 1,000 ML IV SCH (17:46)
[2019-07-09 19:55] VITALS: BP 114/69
[2019-07-09] MEDS ORDERED: IPRATROPIUM BROMIDE 0.5 MG/2.5 ML NEB SOLUTION NEB PRN (21:45)
[2019-07-09] MEDS ORDERED: MORPHINE SULFATE 2 MG/ML SYRINGE IVP PRN (21:45)
[2019-07-09] MEDS ORDERED: BISACODYL 10 MG RECTAL RECTAL SUPPOSITORY PR PRN (21:45)
[2019-07-09] MEDS ORDERED: ALBUTEROL SULFATE 2.5 MG/0.5 ML NEB SOLUTION NEB PRN (21:45)
[2019-07-09] MEDS ORDERED: HYDROCODONE/ACETAMINOPHEN 5-325 MG TABLET PO PRN (21:45)
[2019-07-09] MEDS: HEPARIN SODIUM,PORCINE 5,000 UNITS/ML VIAL SQ SCH (23:31)
[2019-07-09] MEDS: LORazepam 1 MG TABLET PO PRN (23:32)
[2019-07-09 23:33] VITALS: BP 122/67
[2019-07-10] VITALS (9 sets, daily range): BP systolic 114–140; BP diastolic 67–99
[2019-07-10] MEDS: IBUPROFEN 600 MG TABLET PO PRN ×2 (03:44→13:39)
[2019-07-10] MEDS: SODIUM CHLORIDE 0.45% 1,000 ML IV SCH ×2 (03:45→18:01)
[2019-07-10] MEDS: LORazepam 1 MG TABLET PO PRN ×2 (06:44→13:24)
[2019-07-10] MEDS: DOCUSATE SODIUM 100 MG CAPSULE PO SCH ×2 (08:11→20:46)
[2019-07-10] MEDS: HEPARIN SODIUM,PORCINE 5,000 UNITS/ML VIAL SQ SCH ×3 (08:11→23:17)
[2019-07-10] MEDS: NICOTINE 21 MG/24 HOUR PATCH TD SCH (13:24)
[2019-07-10] MEDS ORDERED: LORazepam 1 MG TABLET PO PRN (13:45)
[2019-07-10 16:14] LABS: BASOPHILS % (AUTO) 0.5 % (0.0-2.0); EOSINOPHILS % (AUTO) 0.8 % (1.0-6.0); HEMOGLOBIN 14.4 g/dL (12.0-16.0); LYMPHOCYTES # (AUTO) 2.9 K/uL (1.0-4.8); LYMPHOCYTES % (AUTO) 24.9 % (22.0-44.0); MEAN CORPUSCULAR HEMOGLOBIN 29.2 pg (26.0-34.0); MEAN CORPUSCULAR HGB CONC 33.6 G/dL (31.0-37.0); MEAN CORPUSCULAR VOLUME 87 fL (80-100); MONOCYTES # (AUTO) 0.6 K/uL (0.1-1.0); MONOCYTES % (AUTO) 5.3 % (2.0-9.0); NEUTROPHILS # (AUTO) 8.1 K/uL (1.8-7.7); NEUTROPHILS % (AUTO) 68.5 % (40.0-70.0); PLATELET COUNT (AUTO) 368 K/uL (150-450); RED BLOOD CELL COUNT(AUTO) 4.94 MIL/uL (4.00-5.20)
[2019-07-10] MEDS: GABAPENTIN 300 MG CAPSULE PO SCH ×2 (16:39→20:46)
[2019-07-10] MEDS: DICYCLOMINE HCL 10 MG CAPSULE PO PRN (16:39)
[2019-07-10 16:40] LABS: CALCIUM, TOTAL 9.1 mg/dL (8.8-10.5); CREATININE 0.96 mg/dL (0.60-1.30); POTASSIUM 3.9 mmol/L (3.5-5.1)
[2019-07-10 16:48] LABS: ALBUMIN 3.9 g/dL (3.4-5.0); BILIRUBIN,TOTAL 0.4 mg/dL (0.1-1.0); TOTAL PROTEIN, SERUM 7.5 g/dL (6.4-8.2)
[2019-07-10] MEDS ORDERED: DIAZEPAM 10 MG TABLET PO PRN (17:00)
[2019-07-10] MEDS ORDERED: BARIUM SULFATE 0.1% SUSPENSION 450 ML BOTTLE ONE ×2 (17:22)
[2019-07-10] MEDS: ZIPRASIDONE HCL 20 MG CAPSULE PO SCH (17:51)
[2019-07-10] MEDS: CITALOPRAM HYDROBROMIDE 20 MG TABLET PO SCH (17:51)
[2019-07-10] MEDS: ONDANSETRON HCL 4 MG/2 ML VIAL IVP PRN (17:51)
[2019-07-10] MEDS: LamoTRIgine 25 MG TABLET PO SCH (17:51)
[2019-07-10] MEDS ORDERED: IOVERSOL 350 MG/ML 100 ML VIAL ONE (18:49)
[2019-07-10] MEDS ORDERED: SODIUM CHLORIDE 0.9% 100 ML ONE (18:49)
[2019-07-10] MEDS: ACETAMINOPHEN 325 MG TABLET PO PRN (20:46)
[2019-07-10] MEDS: TraZODone HCL 50 MG TABLET PO SCH (20:46)
[2019-07-10] MEDS: ZOLPIDEM TARTRATE 5 MG TABLET PO PRN (23:17)
[2019-07-11] MEDS: MAGNESIUM HYDROXIDE SUSPENSION 30 ML UDCUP PO PRN (04:05)
[2019-07-11] MEDS: HydrOXYzine PAMOATE 50 MG CAPSULE PO PRN (04:05)
[2019-07-11] MEDS ORDERED: DIAZEPAM 10 MG TABLET PO PRN (07:00)
[2019-07-11 07:15] VITALS: BP 109/67
[2019-07-11 07:30] LABS: BASOPHILS % (AUTO) 0.3 % (0.0-2.0); EOSINOPHILS % (AUTO) 0.9 % (1.0-6.0); HEMOGLOBIN 13.7 g/dL (12.0-16.0); LYMPHOCYTES # (AUTO) 0.9 K/uL (1.0-4.8); LYMPHOCYTES % (AUTO) 6.7 % (22.0-44.0); MEAN CORPUSCULAR HEMOGLOBIN 29.8 pg (26.0-34.0); MEAN CORPUSCULAR HGB CONC 34.2 G/dL (31.0-37.0); MEAN CORPUSCULAR VOLUME 87 fL (80-100); MONOCYTES # (AUTO) 0.6 K/uL (0.1-1.0); MONOCYTES % (AUTO) 4.3 % (2.0-9.0); NEUTROPHILS # (AUTO) 12.2 K/uL (1.8-7.7); NEUTROPHILS % (AUTO) 87.8 % (40.0-70.0); PLATELET COUNT (AUTO) 288 K/uL (150-450); RED BLOOD CELL COUNT(AUTO) 4.59 MIL/uL (4.00-5.20); RED CELL DISTRIBUTION WIDTH 15.9 % (11.5-14.5)
[2019-07-11 07:47] LABS: ALBUMIN 3.5 g/dL (3.4-5.0); BILIRUBIN,TOTAL 0.3 mg/dL (0.1-1.0); CALCIUM, TOTAL 8.6 mg/dL (8.8-10.5); CREATININE 0.98 mg/dL (0.60-1.30); POTASSIUM 4.1 mmol/L (3.5-5.1); TOTAL PROTEIN, SERUM 6.7 g/dL (6.4-8.2)
[2019-07-11] MEDS: DIAZEPAM 10 MG TABLET PO SCH ×4 (08:04→20:15)
[2019-07-11] MEDS: NICOTINE 21 MG/24 HOUR PATCH TD SCH (08:04)
[2019-07-11] MEDS: HEPARIN SODIUM,PORCINE 5,000 UNITS/ML VIAL SQ SCH ×3 (08:05→23:39)
[2019-07-11] MEDS: ZIPRASIDONE HCL 20 MG CAPSULE PO SCH ×2 (08:05→17:24)
[2019-07-11] MEDS: ACETAMINOPHEN 325 MG TABLET PO PRN (08:05)
[2019-07-11] MEDS: GABAPENTIN 300 MG CAPSULE PO SCH ×3 (08:06→20:15)
[2019-07-11] MEDS: LamoTRIgine 25 MG TABLET PO SCH (08:06)
[2019-07-11] MEDS: DOCUSATE SODIUM 100 MG CAPSULE PO SCH ×2 (08:06→20:14)
[2019-07-11] MEDS: ONDANSETRON HCL 4 MG/2 ML VIAL IVP PRN ×2 (08:06→14:36)
[2019-07-11] MEDS: CITALOPRAM HYDROBROMIDE 20 MG TABLET PO SCH (08:07)
[2019-07-11] MEDS: SODIUM CHLORIDE 0.45% 1,000 ML IV SCH ×2 (08:52→21:51)
[2019-07-11 11:20] VITALS: BP 141/66
[2019-07-11] MEDS: IBUPROFEN 600 MG TABLET PO PRN (14:36)
[2019-07-11 15:20] VITALS: BP 120/85
[2019-07-11 20:05] VITALS: BP 119/78
[2019-07-11] MEDS: TraZODone HCL 50 MG TABLET PO SCH (20:15)
[2019-07-11] MEDS ORDERED: TraZODone HCL 50 MG TABLET PO SCH (21:00)
[2019-07-11] MEDS: DICYCLOMINE HCL 10 MG CAPSULE PO PRN (22:06)
[2019-07-11 23:59] VITALS: BP 117/86
[2019-07-12] MEDS: HydrOXYzine PAMOATE 50 MG CAPSULE PO PRN (02:45)
[2019-07-12 05:55] VITALS: BP 132/92
[2019-07-12 07:22] LABS: APPEARANCE,URINE CLEAR (CLEAR); BILIRUBIN,URINE NEGATIVE (NEGATIVE); GLUCOSE, URINE (UA) NEGATIVE (NEGATIVE); KETONES,URINE NEGATIVE (NEGATIVE); LEUKOCYTE ESTERASE ,URINE NEGATIVE (NEGATIVE); NITRATE,URINE NEGATIVE (NEGATIVE); OCCULT BLOOD,URINE NEGATIVE (NEGATIVE); PH,URINE 6.5 (5.0-8.0); PROTEIN,URINE NEGATIVE (NEGATIVE); UROBILINOGEN,URINE 0.2 mg/dL (<=1.0)
[2019-07-12 07:42] LABS: BASOPHILS % (AUTO) 0.5 % (0.0-2.0); EOSINOPHILS % (AUTO) 5.6 % (1.0-6.0); HEMATOCRIT 39.9 % (36-46); HEMOGLOBIN 13.6 g/dL (12.0-16.0); LYMPHOCYTES # (AUTO) 1.8 K/uL (1.0-4.8); LYMPHOCYTES % (AUTO) 19.1 % (22.0-44.0); MEAN CORPUSCULAR HEMOGLOBIN 29.9 pg (26.0-34.0); MEAN CORPUSCULAR VOLUME 88 fL (80-100); MONOCYTES # (AUTO) 0.6 K/uL (0.1-1.0); MONOCYTES % (AUTO) 6.3 % (2.0-9.0); NEUTROPHILS # (AUTO) 6.6 K/uL (1.8-7.7); NEUTROPHILS % (AUTO) 68.5 % (40.0-70.0); PLATELET COUNT (AUTO) 305 K/uL (150-450); RED BLOOD CELL COUNT(AUTO) 4.54 MIL/uL (4.00-5.20)
[2019-07-12 07:45] VITALS: BP 114/60
[2019-07-12] MEDS: CITALOPRAM HYDROBROMIDE 20 MG TABLET PO SCH (07:52)
[2019-07-12] MEDS: NICOTINE 21 MG/24 HOUR PATCH TD SCH (07:52)
[2019-07-12] MEDS: ZIPRASIDONE HCL 20 MG CAPSULE PO SCH ×2 (07:52→07:58)
[2019-07-12] MEDS: LamoTRIgine 25 MG TABLET PO SCH (07:52)
[2019-07-12] MEDS: DIAZEPAM 10 MG TABLET PO SCH ×4 (07:52→20:18)
[2019-07-12] MEDS: HEPARIN SODIUM,PORCINE 5,000 UNITS/ML VIAL SQ SCH ×3 (07:53→23:03)
[2019-07-12] MEDS: GABAPENTIN 300 MG CAPSULE PO SCH ×3 (07:53→20:18)
[2019-07-12] MEDS: DOCUSATE SODIUM 100 MG CAPSULE PO SCH ×2 (07:53→20:20)
[2019-07-12 07:54] LABS: ALBUMIN 3.5 g/dL (3.4-5.0); BILIRUBIN,TOTAL 0.2 mg/dL (0.1-1.0); CALCIUM, TOTAL 8.8 mg/dL (8.8-10.5); CREATININE 1.02 mg/dL (0.60-1.30); POTASSIUM 4.1 mmol/L (3.5-5.1); TOTAL PROTEIN, SERUM 6.9 g/dL (6.4-8.2)
[2019-07-12] MEDS: ONDANSETRON HCL 4 MG/2 ML VIAL IVP PRN (08:05)
[2019-07-12] MEDS: IBUPROFEN 600 MG TABLET PO PRN ×2 (10:33→16:34)
[2019-07-12 11:42] VITALS: BP 121/74
[2019-07-12] MEDS: SODIUM CHLORIDE 0.45% 1,000 ML IV SCH (12:22)
[2019-07-12 15:46] VITALS: BP 129/89
[2019-07-12] MEDS: OLANZapine 10 MG TABLET PO SCH (20:18)
[2019-07-12 20:25] VITALS: BP 121/78
[2019-07-12 23:10] VITALS: BP 118/86
[2019-07-13] MEDS: SODIUM CHLORIDE 0.45% 1,000 ML IV SCH ×2 (00:57→14:26)
[2019-07-13] MEDS: IBUPROFEN 600 MG TABLET PO PRN ×2 (05:08→21:58)
[2019-07-13 05:25] VITALS: BP 126/96
[2019-07-13] MEDS: ONDANSETRON HCL 4 MG/2 ML VIAL IVP PRN ×2 (05:30→12:07)
[2019-07-13] MEDS: HydrOXYzine PAMOATE 50 MG CAPSULE PO PRN ×2 (05:34→23:35)
[2019-07-13 06:24] LABS: BASOPHILS % (AUTO) 0.5 % (0.0-2.0); EOSINOPHILS % (AUTO) 5.6 % (1.0-6.0); HEMATOCRIT 42.8 % (36-46); HEMOGLOBIN 14.4 g/dL (12.0-16.0); LYMPHOCYTES # (AUTO) 2.3 K/uL (1.0-4.8); LYMPHOCYTES % (AUTO) 25.3 % (22.0-44.0); MEAN CORPUSCULAR HEMOGLOBIN 29.8 pg (26.0-34.0); MEAN CORPUSCULAR HGB CONC 33.7 G/dL (31.0-37.0); MEAN CORPUSCULAR VOLUME 89 fL (80-100); MONOCYTES # (AUTO) 0.6 K/uL (0.1-1.0); MONOCYTES % (AUTO) 6.5 % (2.0-9.0); NEUTROPHILS # (AUTO) 5.6 K/uL (1.8-7.7); NEUTROPHILS % (AUTO) 62.1 % (40.0-70.0); PLATELET COUNT (AUTO) 348 K/uL (150-450); RED BLOOD CELL COUNT(AUTO) 4.83 MIL/uL (4.00-5.20); RED CELL DISTRIBUTION WIDTH 16.3 % (11.5-14.5)
[2019-07-13] MEDS ORDERED: DIAZEPAM 5 MG TABLET PO PRN (07:00)
[2019-07-13 07:22] LABS: ALANINE AMINOTRANSFERASE 29 U/L (12-78); ALBUMIN 3.7 g/dL (3.4-5.0); ALKALINE PHOSPHATASE 81 U/L (46-116); ANION GAP 9 mmol/L (8-16); ASPARTATE AMINOTRANSFERASE 10 U/L (15-37); BILIRUBIN,TOTAL 0.1 mg/dL (0.1-1.0); CALCIUM, TOTAL 9.1 mg/dL (8.8-10.5); CARBON DIOXIDE 28 mmol/L (22-29); CHLORIDE 102 mmol/L (98-107); CREATININE 0.91 mg/dL (0.60-1.30); GLOMERULAR FILTR. RATE CALC > 60 mL/min (>60); GLUCOSE,RANDOM 102 mg/dL (70-110); POTASSIUM 4.2 mmol/L (3.5-5.1); SODIUM SERUM 139 mmol/L (136-145); TOTAL PROTEIN, SERUM 7.4 g/dL (6.4-8.2)
[2019-07-13 07:29] LABS: UREA NITROGEN, BLOOD 6 mg/dL (7-18)
[2019-07-13 07:35] VITALS: BP 128/91
[2019-07-13] MEDS: DIAZEPAM 5 MG TABLET PO SCH ×4 (08:40→19:51)
[2019-07-13] MEDS: HEPARIN SODIUM,PORCINE 5,000 UNITS/ML VIAL SQ SCH ×3 (08:40→23:34)
[2019-07-13] MEDS: DOCUSATE SODIUM 100 MG CAPSULE PO SCH ×2 (08:40→19:51)
[2019-07-13] MEDS: GABAPENTIN 300 MG CAPSULE PO SCH ×3 (08:40→19:51)
[2019-07-13] MEDS: NICOTINE 21 MG/24 HOUR PATCH TD SCH (08:41)
[2019-07-13] MEDS: CITALOPRAM HYDROBROMIDE 20 MG TABLET PO SCH (08:41)
[2019-07-13] MEDS: LamoTRIgine 25 MG TABLET PO SCH (08:41)
[2019-07-13] MEDS: MAG HYDROX/AL HYDROX/SIMETH ES 30 ML SUSPENSION UDCUP PO PRN (12:14)
[2019-07-13 12:23] VITALS: BP 128/90
[2019-07-13 16:05] VITALS: BP 117/89
[2019-07-13] MEDS: OLANZapine 10 MG TABLET PO SCH (19:51)
[2019-07-13 19:53] VITALS: BP 126/85
[2019-07-13 23:33] VITALS: BP 116/87
[2019-07-14] VITALS (7 sets, daily range): BP systolic 105–142; BP diastolic 61–89
[2019-07-14] MEDS: SODIUM CHLORIDE 0.45% 1,000 ML IV SCH (03:53)
[2019-07-14] MEDS: ONDANSETRON HCL 4 MG/2 ML VIAL IVP PRN (06:10)
[2019-07-14 07:29] LABS: BASOPHILS % (AUTO) 0.6 % (0.0-2.0); EOSINOPHILS % (AUTO) 4.7 % (1.0-6.0); HEMATOCRIT 40.1 % (36-46); HEMOGLOBIN 13.4 g/dL (12.0-16.0); LYMPHOCYTES # (AUTO) 2.3 K/uL (1.0-4.8); LYMPHOCYTES % (AUTO) 27.2 % (22.0-44.0); MEAN CORPUSCULAR HEMOGLOBIN 29.5 pg (26.0-34.0); MEAN CORPUSCULAR HGB CONC 33.4 G/dL (31.0-37.0); MEAN CORPUSCULAR VOLUME 88 fL (80-100); MONOCYTES # (AUTO) 0.3 K/uL (0.1-1.0); MONOCYTES % (AUTO) 3.6 % (2.0-9.0); NEUTROPHILS # (AUTO) 5.3 K/uL (1.8-7.7); NEUTROPHILS % (AUTO) 63.9 % (40.0-70.0); PLATELET COUNT (AUTO) 309 K/uL (150-450); RED BLOOD CELL COUNT(AUTO) 4.54 MIL/uL (4.00-5.20); RED CELL DISTRIBUTION WIDTH 16.2 % (11.5-14.5)
[2019-07-14 07:43] LABS: ALBUMIN 3.4 g/dL (3.4-5.0); BILIRUBIN,TOTAL 0.1 mg/dL (0.1-1.0); CALCIUM, TOTAL 8.7 mg/dL (8.8-10.5); CREATININE 1.12 mg/dL (0.60-1.30); TOTAL PROTEIN, SERUM 6.7 g/dL (6.4-8.2)
[2019-07-14] MEDS: MAGNESIUM HYDROXIDE SUSPENSION 30 ML UDCUP PO PRN (08:02)
[2019-07-14] MEDS: HEPARIN SODIUM,PORCINE 5,000 UNITS/ML VIAL SQ SCH ×2 (08:03→15:44)
[2019-07-14] MEDS: GABAPENTIN 400 MG CAPSULE PO SCH ×3 (08:03→20:33)
[2019-07-14] MEDS: LamoTRIgine 25 MG TABLET PO SCH (08:03)
[2019-07-14] MEDS: CITALOPRAM HYDROBROMIDE 20 MG TABLET PO SCH (08:04)
[2019-07-14] MEDS: DOCUSATE SODIUM 100 MG CAPSULE PO SCH ×2 (08:04→20:33)
[2019-07-14] MEDS: NICOTINE 21 MG/24 HOUR PATCH TD SCH (08:05)
[2019-07-14] MEDS: IBUPROFEN 600 MG TABLET PO PRN (09:48)
[2019-07-14] MEDS: DIAZEPAM 5 MG TABLET PO PRN ×2 (11:58→16:19)
[2019-07-14] MEDS: MAG HYDROX/AL HYDROX/SIMETH ES 30 ML SUSPENSION UDCUP PO PRN (14:17)
[2019-07-14] MEDS: PROMETHAZINE HCL 25 MG TABLET PO PRN (14:20)
[2019-07-14] MEDS: ZOLPIDEM TARTRATE 5 MG TABLET PO PRN (20:33)
[2019-07-14] MEDS: OLANZapine 10 MG TABLET PO SCH (20:33)
[2019-07-14] MEDS: ACETAMINOPHEN 325 MG TABLET PO PRN (20:34)
[2019-07-15] VITALS (7 sets, daily range): BP systolic 109–135; BP diastolic 61–92
[2019-07-15] MEDS: HEPARIN SODIUM,PORCINE 5,000 UNITS/ML VIAL SQ SCH ×4 (00:41→23:27)
[2019-07-15] MEDS: DIAZEPAM 5 MG TABLET PO PRN ×2 (01:14→05:28)
[2019-07-15 07:52] LABS: BASOPHILS % (AUTO) 0.8 % (0.0-2.0); EOSINOPHILS % (AUTO) 4.4 % (1.0-6.0); HEMATOCRIT 41.1 % (36-46); HEMOGLOBIN 13.9 g/dL (12.0-16.0); LYMPHOCYTES # (AUTO) 2.1 K/uL (1.0-4.8); LYMPHOCYTES % (AUTO) 24.3 % (22.0-44.0); MEAN CORPUSCULAR VOLUME 88 fL (80-100); MONOCYTES # (AUTO) 0.4 K/uL (0.1-1.0); MONOCYTES % (AUTO) 4.5 % (2.0-9.0); NEUTROPHILS # (AUTO) 5.6 K/uL (1.8-7.7); PLATELET COUNT (AUTO) 315 K/uL (150-450); RED BLOOD CELL COUNT(AUTO) 4.65 MIL/uL (4.00-5.20); RED CELL DISTRIBUTION WIDTH 16.2 % (11.5-14.5)
[2019-07-15] MEDS: GABAPENTIN 400 MG CAPSULE PO SCH ×3 (08:04→21:42)
[2019-07-15] MEDS: CITALOPRAM HYDROBROMIDE 20 MG TABLET PO SCH (08:04)
[2019-07-15] MEDS: DOCUSATE SODIUM 100 MG CAPSULE PO SCH ×2 (08:04→21:43)
[2019-07-15] MEDS: LamoTRIgine 25 MG TABLET PO SCH (08:04)
[2019-07-15] MEDS: MAGNESIUM HYDROXIDE SUSPENSION 30 ML UDCUP PO PRN (08:04)
[2019-07-15] MEDS: NICOTINE 21 MG/24 HOUR PATCH TD SCH (08:06)
[2019-07-15 08:21] LABS: ALBUMIN 3.7 g/dL (3.4-5.0); BILIRUBIN,TOTAL 0.2 mg/dL (0.1-1.0); CALCIUM, TOTAL 9.3 mg/dL (8.8-10.5); CREATININE 0.96 mg/dL (0.60-1.30); POTASSIUM 4.3 mmol/L (3.5-5.1); TOTAL PROTEIN, SERUM 6.8 g/dL (6.4-8.2)
[2019-07-15] MEDS ORDERED: DIAZEPAM 5 MG TABLET PO ONE (11:00)
[2019-07-15] MEDS: IBUPROFEN 600 MG TABLET PO PRN (11:00)
[2019-07-15] MEDS ORDERED: LORazepam 0.5 MG TABLET PO ONE (11:00)
[2019-07-15] MEDS: DICYCLOMINE HCL 10 MG CAPSULE PO PRN (12:38)
[2019-07-15] MEDS: CALAMINE/ZINC OXIDE 177 ML LOTION TP SCH ×3 (12:52→21:42)
[2019-07-15] MEDS: MAG HYDROX/AL HYDROX/SIMETH ES 30 ML SUSPENSION UDCUP PO PRN (14:57)
[2019-07-15] MEDS: OLANZapine 7.5 MG TABLET PO SCH (21:41)
[2019-07-15] MEDS: ZOLPIDEM TARTRATE 5 MG TABLET PO PRN (23:27)
[2019-07-16 05:15] VITALS: BP 118/84
[2019-07-16 07:25] LABS: BASOPHILS % (AUTO) 0.4 % (0.0-2.0); EOSINOPHILS % (AUTO) 4.4 % (1.0-6.0); HEMATOCRIT 41.9 % (36-46); HEMOGLOBIN 14.2 g/dL (12.0-16.0); LYMPHOCYTES # (AUTO) 2.7 K/uL (1.0-4.8); LYMPHOCYTES % (AUTO) 25.3 % (22.0-44.0); MEAN CORPUSCULAR HGB CONC 33.9 G/dL (31.0-37.0); MEAN CORPUSCULAR VOLUME 89 fL (80-100); MONOCYTES # (AUTO) 0.6 K/uL (0.1-1.0); MONOCYTES % (AUTO) 5.6 % (2.0-9.0); NEUTROPHILS # (AUTO) 6.9 K/uL (1.8-7.7); NEUTROPHILS % (AUTO) 64.3 % (40.0-70.0); PLATELET COUNT (AUTO) 358 K/uL (150-450); RED BLOOD CELL COUNT(AUTO) 4.74 MIL/uL (4.00-5.20); RED CELL DISTRIBUTION WIDTH 16.3 % (11.5-14.5)
[2019-07-16 07:33] VITALS: BP 126/92
[2019-07-16 07:39] LABS: ALANINE AMINOTRANSFERASE 29 U/L (12-78); ALBUMIN 3.8 g/dL (3.4-5.0); ALKALINE PHOSPHATASE 79 U/L (46-116); ANION GAP 11 mmol/L (8-16); ASPARTATE AMINOTRANSFERASE 15 U/L (15-37); BILIRUBIN,TOTAL 0.1 mg/dL (0.1-1.0); CALCIUM, TOTAL 9.5 mg/dL (8.8-10.5); CARBON DIOXIDE 27 mmol/L (22-29); CHLORIDE 100 mmol/L (98-107); CREATININE 0.87 mg/dL (0.60-1.30); GLOMERULAR FILTR. RATE CALC > 60 mL/min (>60); GLUCOSE,RANDOM 116 mg/dL (70-110); POTASSIUM 4.2 mmol/L (3.5-5.1); SODIUM SERUM 138 mmol/L (136-145); TOTAL PROTEIN, SERUM 7.4 g/dL (6.4-8.2); UREA NITROGEN, BLOOD 11 mg/dL (7-18)
[2019-07-16] MEDS: CITALOPRAM HYDROBROMIDE 20 MG TABLET PO SCH (08:07)
[2019-07-16] MEDS: GABAPENTIN 400 MG CAPSULE PO SCH ×3 (08:07→20:33)
[2019-07-16] MEDS: DOCUSATE SODIUM 100 MG CAPSULE PO SCH ×2 (08:07→20:33)
[2019-07-16] MEDS: LamoTRIgine 25 MG TABLET PO SCH (08:07)
[2019-07-16] MEDS: HEPARIN SODIUM,PORCINE 5,000 UNITS/ML VIAL SQ SCH ×2 (08:08→15:22)
[2019-07-16] MEDS: CALAMINE/ZINC OXIDE 177 ML LOTION TP SCH ×2 (08:08→20:34)
[2019-07-16] MEDS: NICOTINE 21 MG/24 HOUR PATCH TD SCH (08:08)
[2019-07-16] MEDS: IBUPROFEN 600 MG TABLET PO PRN (10:36)
[2019-07-16] MEDS: PROMETHAZINE HCL 25 MG TABLET PO PRN (14:46)
[2019-07-16] MEDS: ACETAMINOPHEN 325 MG TABLET PO PRN (14:53)
[2019-07-16 16:34] VITALS: BP 138/82
[2019-07-16] MEDS: MAG HYDROX/AL HYDROX/SIMETH ES 30 ML SUSPENSION UDCUP PO PRN (16:44)
[2019-07-16] MEDS: OLANZapine 7.5 MG TABLET PO SCH (20:33)
[2019-07-16 20:40] VITALS: BP 129/78
[2019-07-16] MEDS: ZOLPIDEM TARTRATE 5 MG TABLET PO PRN (22:47)
[2019-07-17 00:38] VITALS: BP 119/83
[2019-07-17] MEDS: HEPARIN SODIUM,PORCINE 5,000 UNITS/ML VIAL SQ SCH ×3 (00:39→15:14)
[2019-07-17] MEDS: IBUPROFEN 600 MG TABLET PO PRN ×2 (01:11→11:08)
[2019-07-17 04:00] VITALS: BP 140/91
[2019-07-17] MEDS: ACETAMINOPHEN 325 MG TABLET PO PRN (05:04)
[2019-07-17 07:47] LABS: BASOPHILS % (AUTO) 0.4 % (0.0-2.0); EOSINOPHILS % (AUTO) 4.9 % (1.0-6.0); HEMATOCRIT 38.6 % (36-46); LYMPHOCYTES # (AUTO) 2.2 K/uL (1.0-4.8); LYMPHOCYTES % (AUTO) 22.7 % (22.0-44.0); MEAN CORPUSCULAR HEMOGLOBIN 29.7 pg (26.0-34.0); MEAN CORPUSCULAR HGB CONC 33.6 G/dL (31.0-37.0); MEAN CORPUSCULAR VOLUME 89 fL (80-100); MONOCYTES # (AUTO) 0.5 K/uL (0.1-1.0); MONOCYTES % (AUTO) 5.3 % (2.0-9.0); NEUTROPHILS # (AUTO) 6.4 K/uL (1.8-7.7); NEUTROPHILS % (AUTO) 66.7 % (40.0-70.0); PLATELET COUNT (AUTO) 303 K/uL (150-450); RED BLOOD CELL COUNT(AUTO) 4.36 MIL/uL (4.00-5.20); RED CELL DISTRIBUTION WIDTH 16.1 % (11.5-14.5)
[2019-07-17 07:57] LABS: ALBUMIN 3.5 g/dL (3.4-5.0); BILIRUBIN,TOTAL 0.1 mg/dL (0.1-1.0); CALCIUM, TOTAL 9.1 mg/dL (8.8-10.5); CREATININE 0.95 mg/dL (0.60-1.30); POTASSIUM 4.6 mmol/L (3.5-5.1); TOTAL PROTEIN, SERUM 6.8 g/dL (6.4-8.2)
[2019-07-17 08:00] VITALS: BP 115/89
[2019-07-17] MEDS: DOCUSATE SODIUM 100 MG CAPSULE PO SCH (08:20)
[2019-07-17] MEDS: CITALOPRAM HYDROBROMIDE 20 MG TABLET PO SCH (08:20)
[2019-07-17] MEDS: LamoTRIgine 25 MG TABLET PO SCH (08:20)
[2019-07-17] MEDS: NICOTINE 21 MG/24 HOUR PATCH TD SCH (08:20)
[2019-07-17] MEDS: GABAPENTIN 400 MG CAPSULE PO SCH ×2 (08:20→15:13)
[2019-07-17] MEDS: CALAMINE/ZINC OXIDE 177 ML LOTION TP SCH (08:25)
[2019-07-17 11:50] VITALS: BP 137/84
[2019-07-17] MEDS: MAG HYDROX/AL HYDROX/SIMETH ES 30 ML SUSPENSION UDCUP PO PRN (13:45)
[2019-07-17] MEDS: PROMETHAZINE HCL 25 MG TABLET PO PRN (13:45)
[2019-07-17] MEDS ORDERED: OLAN15TA2 PO (16:36)
== END 2019-07-17 17:45 | DRG 897 ==
LOC: EMS 02:13 → 6S 05:52
PROVIDERS: ADMIT Hospitalist; ATTEND Hospitalist
DX: F11.23 Opioid dependence with withdrawal (principal); F10.239 Alcohol dependence with withdrawal, unspecified; F31.9 Bipolar disorder, unspecified; F15.99 Other stimulant use, unspecified with unspecified stimulant-induced disorder; G89.29 Other chronic pain; M54.9 Dorsalgia, unspecified; F13.929 Sedative, hypnotic or anxiolytic use, unspecified with intoxication, unspecified; B19.20 Unspecified viral hepatitis C without hepatic coma; D72.829 Elevated white blood cell count, unspecified; Z79.890 Hormone replacement therapy; Z87.891 Personal history of nicotine dependence; Z91.5 Personal history of self-harm
CPT/HCPCS: 74177; G0480; J1644; J2060; J2405; J7050; Q0162

== ENCOUNTER 2020-04-14 09:42 | Inpatient (IN) | payer OTHER ==
[~2020-04-14] VITALS: Ht 165.1 cm; Wt 92.5 kg
[~2020-04-14 09:42] MED LIST changes: -BACTDSB PO; -CITA-106 PO; +CITA-144 PO; -DIPH50 PO; -ESTR-28 PO; -GABA-531 PO; +OLAN15TA2 PO
[2020-04-14] MEDS ORDERED: DULO30CA96 PO (10:07)
[2020-04-14] MEDS ORDERED: ACET160E39 PO (10:07)
[2020-04-14] MEDS ORDERED: PRAZ2 PO (10:07)
[2020-04-14] MEDS ORDERED: MEDR4 PO (10:07)
[2020-04-14] MEDS ORDERED: AZIT-84 PO (10:07)
[2020-04-14] MEDS ORDERED: OLAN10TA3 PO (10:07)
[2020-04-14] MEDS ORDERED: LAMO25TA25 PO (10:07)
[2020-04-14] MEDS ORDERED: BUSP15 PO (10:07)
[2020-04-14 10:29] LABS: BASOPHILS % (AUTO) 0.2 % (0.0-2.0); EOSINOPHILS % (AUTO) 0 % (1.0-6.0); HEMATOCRIT 34.6 % (36-46); HEMOGLOBIN 11.8 g/dL (12.0-16.0); LYMPHOCYTES # (AUTO) 0.5 K/uL (1.0-4.8); LYMPHOCYTES % (AUTO) 7.3 % (22.0-44.0); MEAN CORPUSCULAR HEMOGLOBIN 31.1 pg (26.0-34.0); MEAN CORPUSCULAR VOLUME 92 fL (80-100); MONOCYTES # (AUTO) 0.3 K/uL (0.1-1.0); MONOCYTES % (AUTO) 5.1 % (2.0-9.0); NEUTROPHILS # (AUTO) 5.7 K/uL (1.8-7.7); PLATELET COUNT (AUTO) 159 K/uL (150-450); RED BLOOD CELL COUNT(AUTO) 3.78 MIL/uL (4.00-5.20); RED CELL DISTRIBUTION WIDTH 13.2 % (11.5-14.5)
[2020-04-14] MEDS: SODIUM CHLORIDE 0.9% 2,200 ML IV ONE ×3 (10:29→10:33)
[2020-04-14 10:30] LABS: NEUTROPHILS % (AUTO) 87.4 % (40.0-70.0)
[2020-04-14] MEDS ORDERED: DEXAMETHASONE SOD PHOS 4 MG/ML 5 ML VIAL IVP ONE (10:30)
[2020-04-14 10:44] LABS: CALCIUM, TOTAL 8.4 mg/dL (8.8-10.5); CREATININE 1.28 mg/dL (0.60-1.30); D-DIMER 0.4 mg/L FEU (0.00-0.50); PROTHROMBIN TIME 10.9 SEC (9.4-11.6)
[2020-04-14 10:48] LABS: LACTIC ACID 0.6 mmol/L (0.4-2.0)
[2020-04-14 11:10] LABS: ALBUMIN 3.4 g/dL (3.4-5.0); BILIRUBIN,TOTAL 0.3 mg/dL (0.1-1.0); C-REACTIVE PROTEIN QUANT 6.12 mg/dL (0.00-0.30); MAGNESIUM 1.8 mg/dL (1.80-2.40); TOTAL PROTEIN, SERUM 6.9 g/dL (6.4-8.2)
[2020-04-14 11:34] LABS: ERYTHROCYTE SEDIMENTATION RATE 41 MM/HR (0-20)
[2020-04-14 11:44] LABS: BAND NEUTROPHILS % (MANUAL) 15 % (0-5); LYMPHOCYTES % (MANUAL) 7 % (22-44); MONOCYTES % (MANUAL) 5 % (2-9); SEGMENTED NEUTROPHILS % 73 % (40-70)
[2020-04-14] MEDS: AZITHROMYCIN 500 MG/NS 250 ML IV SCH (12:48)
[2020-04-14 15:27] LABS: APPEARANCE,URINE CLEAR (CLEAR); BILIRUBIN,URINE NEGATIVE (NEGATIVE); GLUCOSE, URINE (UA) NEGATIVE (NEGATIVE); KETONES,URINE NEGATIVE (NEGATIVE); LEUKOCYTE ESTERASE ,URINE NEGATIVE (NEGATIVE); NITRATE,URINE NEGATIVE (NEGATIVE); OCCULT BLOOD,URINE NEGATIVE (NEGATIVE); PROTEIN,URINE POS 1+ (NEGATIVE); UROBILINOGEN,URINE 0.2 mg/dL (<=1.0)
[2020-04-14 15:43] LABS: RBC,URINE None Seen /HPF (0-2); WBC,URINE 0-2 /HPF (0-5)
[2020-04-14 15:44] LABS: BACTERIA,URINE None Seen /HPF (None Seen); SQUAMOUS EPITHELIAL CELL,UR Moderate /LPF (None Seen)
[2020-04-14] MEDS: HEPARIN SODIUM,PORCINE 5,000 UNITS/ML VIAL SQ SCH (16:06)
[2020-04-14] MEDS: BENZONATATE 100 MG CAPSULE PO PRN (17:37)
[2020-04-14] MEDS: ACETAMINOPHEN 325 MG TABLET PO PRN ×2 (17:37→21:41)
[2020-04-14 17:41] VITALS: BP 107/62
[2020-04-14] MEDS ORDERED: PNEUMOCOCCAL VACCINE POLYVALENT 0.5 ML VIAL [PPSV23] IM ONE (18:30)
[2020-04-14 19:42] VITALS: BP 104/62
[2020-04-14] MEDS: OLANZapine 10 MG TABLET PO SCH (21:40)
[2020-04-14] MEDS: DOCUSATE SODIUM 100 MG CAPSULE PO SCH (21:40)
[2020-04-14] MEDS: ZINC SULFATE 220 MG CAPSULE PO SCH (21:40)
[2020-04-15] VITALS (7 sets, daily range): BP systolic 95–121; BP diastolic 56–74
[2020-04-15] MEDS: HEPARIN SODIUM,PORCINE 5,000 UNITS/ML VIAL SQ SCH ×4 (00:29→23:50)
[2020-04-15] MEDS: BENZONATATE 100 MG CAPSULE PO PRN ×3 (03:30→23:50)
[2020-04-15] MEDS: ACETAMINOPHEN 325 MG TABLET PO PRN ×3 (03:32→23:50)
[2020-04-15] MEDS ORDERED: DEXAMETHASONE 4 MG TABLET PO SCH (09:00)
[2020-04-15] MEDS: DOCUSATE SODIUM 100 MG CAPSULE PO SCH ×2 (09:00→21:22)
[2020-04-15] MEDS ORDERED: LamoTRIgine 25 MG TABLET PO SCH (09:00)
[2020-04-15] MEDS: ZINC SULFATE 220 MG CAPSULE PO SCH ×2 (09:10→21:22)
[2020-04-15] MEDS: FAMOTIDINE 20 MG TABLET PO SCH (09:10)
[2020-04-15] MEDS ORDERED: ACET-2865 PO (12:09)
[2020-04-15] MEDS ORDERED: SODIUM CHLORIDE 0.9% 250 ML IV ONE (13:23)
[2020-04-15] MEDS ORDERED: REMDESIVIR **INVESTIGATIONAL** 200 MG in SODIUM CHLORIDE 0.9% 210 ML IV ONE (13:45)
[2020-04-15] MEDS: GuaiFENesin/D-METHORPHAN [SUGAR-FREE] 200-20MG/10 ML SYRUP UDCUP PO PRN ×2 (14:10→21:22)
[2020-04-15] MEDS: AZITHROMYCIN 500 MG/NS 250 ML IV SCH (14:10)
[2020-04-15] MEDS: DULoxetine HCL 60 MG CAPSULE PO SCH (17:36)
[2020-04-15] MEDS: LamoTRIgine 25 MG TABLET PO SCH (21:21)
[2020-04-15] MEDS: OLANZapine 10 MG TABLET PO SCH (21:22)
[2020-04-15] MEDS: PRAZOSIN HCL 2 MG CAPSULE PO SCH (21:22)
[2020-04-16 05:29] VITALS: BP 94/62
[2020-04-16] MEDS: GuaiFENesin/D-METHORPHAN [SUGAR-FREE] 200-20MG/10 ML SYRUP UDCUP PO PRN ×3 (05:49→20:57)
[2020-04-16] MEDS: ACETAMINOPHEN 325 MG TABLET PO PRN ×2 (05:49→13:34)
[2020-04-16 07:28] LABS: C-REACTIVE PROTEIN QUANT 10.42 mg/dL (0.00-0.30); FERRITIN 243 ng/mL (8-252); LACTATE DEHYDROGENASE 512 U/L (81-234)
[2020-04-16 07:43] LABS: ALANINE AMINOTRANSFERASE 25 U/L (12-78); ALBUMIN 2.9 g/dL (3.4-5.0); ALKALINE PHOSPHATASE 45 U/L (46-116); ANION GAP 5 mmol/L (8-16); ASPARTATE AMINOTRANSFERASE 48 U/L (15-37); BILIRUBIN,TOTAL 0.3 mg/dL (0.1-1.0); CALCIUM, TOTAL 8.8 mg/dL (8.8-10.5); CARBON DIOXIDE 31 mmol/L (22-29); CHLORIDE 103 mmol/L (98-107); CREATININE 0.94 mg/dL (0.60-1.30); GLOMERULAR FILTR. RATE CALC > 60 mL/min (>60); GLUCOSE,RANDOM 105 mg/dL (70-110); POTASSIUM 4.2 mmol/L (3.5-5.1); SODIUM SERUM 139 mmol/L (136-145); TOTAL PROTEIN, SERUM 6.7 g/dL (6.4-8.2); UREA NITROGEN, BLOOD 18 mg/dL (7-18)
[2020-04-16 08:10] VITALS: BP 93/57
[2020-04-16] MEDS: BENZONATATE 100 MG CAPSULE PO PRN ×2 (08:49→20:57)
[2020-04-16] MEDS: HEPARIN SODIUM,PORCINE 5,000 UNITS/ML VIAL SQ SCH (08:49)
[2020-04-16] MEDS: DOCUSATE SODIUM 100 MG CAPSULE PO SCH ×2 (08:49→20:54)
[2020-04-16] MEDS: ZINC SULFATE 220 MG CAPSULE PO SCH ×2 (08:50→20:55)
[2020-04-16] MEDS: FAMOTIDINE 20 MG TABLET PO SCH (08:50)
[2020-04-16] MEDS: DEXAMETHASONE 4 MG TABLET PO SCH (09:50)
[2020-04-16 12:00] VITALS: BP 90/65
[2020-04-16] MEDS: LamoTRIgine 25 MG TABLET PO SCH ×2 (13:25→20:55)
[2020-04-16] MEDS: AZITHROMYCIN 500 MG/NS 250 ML IV SCH (13:26)
[2020-04-16] MEDS: DULoxetine HCL 60 MG CAPSULE PO SCH (13:26)
[2020-04-16] MEDS: REMDESIVIR **INVESTIGATIONAL** 100 MG in SODIUM CHLORIDE 0.9% 230 ML IV SCH (15:12)
[2020-04-16 16:25] VITALS: BP 91/64
[2020-04-16 20:21] VITALS: BP 86/66
[2020-04-16] MEDS: OLANZapine 10 MG TABLET PO SCH (20:56)
[2020-04-16] MEDS: ENOXAPARIN SODIUM 60 MG/0.6 ML PF SYRINGE SQ SCH (20:56)
[2020-04-16 21:00] VITALS: BP 99/63
[2020-04-16] MEDS: PRAZOSIN HCL 2 MG CAPSULE PO SCH (21:00)
[2020-04-17] VITALS (12 sets, daily range): BP systolic 92–123; BP diastolic 53–75
[2020-04-17] MEDS: GuaiFENesin/D-METHORPHAN [SUGAR-FREE] 200-20MG/10 ML SYRUP UDCUP PO PRN ×2 (02:08→21:13)
[2020-04-17] MEDS: BENZONATATE 100 MG CAPSULE PO PRN ×2 (06:52→15:50)
[2020-04-17] MEDS: ACETAMINOPHEN 325 MG TABLET PO PRN ×2 (06:53→15:58)
[2020-04-17 07:34] LABS: ALANINE AMINOTRANSFERASE 22 U/L (12-78); ALBUMIN 2.7 g/dL (3.4-5.0); ALKALINE PHOSPHATASE 45 U/L (46-116); ANION GAP 3 mmol/L (8-16); ASPARTATE AMINOTRANSFERASE 38 U/L (15-37); BILIRUBIN,TOTAL 0.2 mg/dL (0.1-1.0); CALCIUM, TOTAL 8.7 mg/dL (8.8-10.5); CARBON DIOXIDE 33 mmol/L (22-29); CHLORIDE 105 mmol/L (98-107); CREATININE 0.75 mg/dL (0.60-1.30); FERRITIN 227 ng/mL (8-252); GLOMERULAR FILTR. RATE CALC > 60 mL/min (>60); GLUCOSE,RANDOM 127 mg/dL (70-110); LACTATE DEHYDROGENASE 509 U/L (81-234); SODIUM SERUM 141 mmol/L (136-145); TOTAL PROTEIN, SERUM 6.2 g/dL (6.4-8.2); UREA NITROGEN, BLOOD 20 mg/dL (7-18)
[2020-04-17 08:12] LABS: APPEARANCE,URINE CLOUDY (CLEAR); BILIRUBIN,URINE NEGATIVE (NEGATIVE); GLUCOSE, URINE (UA) NEGATIVE (NEGATIVE); KETONES,URINE NEGATIVE (NEGATIVE); LEUKOCYTE ESTERASE ,URINE NEGATIVE (NEGATIVE); NITRATE,URINE NEGATIVE (NEGATIVE); OCCULT BLOOD,URINE NEGATIVE (NEGATIVE); PROTEIN,URINE TRACE (NEGATIVE); UROBILINOGEN,URINE 0.2 mg/dL (<=1.0)
[2020-04-17] MEDS: DOCUSATE SODIUM 100 MG CAPSULE PO SCH ×2 (08:16→21:11)
[2020-04-17] MEDS: DULoxetine HCL 60 MG CAPSULE PO SCH (08:16)
[2020-04-17] MEDS: LamoTRIgine 25 MG TABLET PO SCH ×2 (08:20→21:11)
[2020-04-17] MEDS: ZINC SULFATE 220 MG CAPSULE PO SCH ×2 (08:20→21:11)
[2020-04-17] MEDS: FAMOTIDINE 20 MG TABLET PO SCH (08:21)
[2020-04-17] MEDS: DEXAMETHASONE 4 MG TABLET PO SCH (08:22)
[2020-04-17] MEDS: ENOXAPARIN SODIUM 60 MG/0.6 ML PF SYRINGE SQ SCH ×2 (08:28→21:12)
[2020-04-17 08:40] LABS: RBC,URINE None Seen /HPF (0-2); WBC,URINE 0-2 /HPF (0-5)
[2020-04-17 08:41] LABS: BACTERIA,URINE None Seen /HPF (None Seen); SQUAMOUS EPITHELIAL CELL,UR Few /LPF (None Seen)
[2020-04-17] MEDS: AZITHROMYCIN 500 MG/NS 250 ML IV SCH (12:07)
[2020-04-17] MEDS: REMDESIVIR **INVESTIGATIONAL** 100 MG in SODIUM CHLORIDE 0.9% 230 ML IV SCH (14:23)
[2020-04-17] MEDS ORDERED: SODIUM CHLORIDE 0.9% 250 ML IV ONE (15:36)
[2020-04-17] MEDS: HYDROCODONE/ACETAMINOPHEN 5-325 MG TABLET PO PRN (17:39)
[2020-04-17] MEDS: PRAZOSIN HCL 2 MG CAPSULE PO SCH (21:00)
[2020-04-17] MEDS: OLANZapine 10 MG TABLET PO SCH (21:12)
[2020-04-18] VITALS (13 sets, daily range): BP systolic 94–112; BP diastolic 47–86
[2020-04-18 05:45] LABS: BASOPHILS % (AUTO) 0.1 % (0.0-2.0); EOSINOPHILS % (AUTO) 0.1 % (1.0-6.0); HEMATOCRIT 36.2 % (36-46); LYMPHOCYTES # (AUTO) 1.1 K/uL (1.0-4.8); LYMPHOCYTES % (AUTO) 13.4 % (22.0-44.0); MEAN CORPUSCULAR HEMOGLOBIN 30.6 pg (26.0-34.0); MEAN CORPUSCULAR HGB CONC 33.1 G/dL (31.0-37.0); MEAN CORPUSCULAR VOLUME 93 fL (80-100); MONOCYTES # (AUTO) 0.5 K/uL (0.1-1.0); MONOCYTES % (AUTO) 6.1 % (2.0-9.0); NEUTROPHILS # (AUTO) 6.8 K/uL (1.8-7.7); NEUTROPHILS % (AUTO) 80.3 % (40.0-70.0); PLATELET COUNT (AUTO) 312 K/uL (150-450); RED BLOOD CELL COUNT(AUTO) 3.92 MIL/uL (4.00-5.20); RED CELL DISTRIBUTION WIDTH 13.5 % (11.5-14.5)
[2020-04-18 06:42] LABS: ALANINE AMINOTRANSFERASE 24 U/L (12-78); ALBUMIN 2.7 g/dL (3.4-5.0); ALKALINE PHOSPHATASE 45 U/L (46-116); ANION GAP 2 mmol/L (8-16); ASPARTATE AMINOTRANSFERASE 30 U/L (15-37); BILIRUBIN,TOTAL 0.2 mg/dL (0.1-1.0); C-REACTIVE PROTEIN QUANT 5.63 mg/dL (0.00-0.30); CALCIUM, TOTAL 8.8 mg/dL (8.8-10.5); CARBON DIOXIDE 34 mmol/L (22-29); CHLORIDE 106 mmol/L (98-107); CREATININE 0.82 mg/dL (0.60-1.30); FERRITIN 180 ng/mL (8-252); GLOMERULAR FILTR. RATE CALC > 60 mL/min (>60); GLUCOSE,RANDOM 101 mg/dL (70-110); LACTATE DEHYDROGENASE 455 U/L (81-234); POTASSIUM 3.8 mmol/L (3.5-5.1); SODIUM SERUM 142 mmol/L (136-145); TOTAL PROTEIN, SERUM 6.1 g/dL (6.4-8.2); UREA NITROGEN, BLOOD 16 mg/dL (7-18)
[2020-04-18 08:06] LABS: ERYTHROCYTE SEDIMENTATION RATE 63 MM/HR (0-20)
[2020-04-18] MEDS: ENOXAPARIN SODIUM 60 MG/0.6 ML PF SYRINGE SQ SCH ×2 (08:06→20:21)
[2020-04-18] MEDS: LamoTRIgine 25 MG TABLET PO SCH ×2 (08:06→20:22)
[2020-04-18] MEDS: DOCUSATE SODIUM 100 MG CAPSULE PO SCH ×2 (08:07→20:22)
[2020-04-18] MEDS: DULoxetine HCL 60 MG CAPSULE PO SCH (08:07)
[2020-04-18] MEDS: FAMOTIDINE 20 MG TABLET PO SCH (08:07)
[2020-04-18] MEDS: ZINC SULFATE 220 MG CAPSULE PO SCH ×2 (08:07→20:31)
[2020-04-18] MEDS: DEXAMETHASONE 4 MG TABLET PO SCH (08:08)
[2020-04-18] MEDS: BENZONATATE 100 MG CAPSULE PO PRN (11:22)
[2020-04-18] MEDS: HYDROCODONE/ACETAMINOPHEN 5-325 MG TABLET PO PRN ×2 (11:24→17:59)
[2020-04-18] MEDS: AZITHROMYCIN 500 MG/NS 250 ML IV SCH (12:08)
[2020-04-18] MEDS: REMDESIVIR **INVESTIGATIONAL** 100 MG in SODIUM CHLORIDE 0.9% 230 ML IV SCH (13:46)
[2020-04-18] MEDS ORDERED: SODIUM CHLORIDE 0.9% 250 ML IV ONE ×2 (14:00)
[2020-04-18] MEDS: PRAZOSIN HCL 2 MG CAPSULE PO SCH (20:22)
[2020-04-18] MEDS: OLANZapine 10 MG TABLET PO SCH (20:22)
[2020-04-18] MEDS: GuaiFENesin/D-METHORPHAN [SUGAR-FREE] 200-20MG/10 ML SYRUP UDCUP PO PRN (20:31)
[2020-04-19 04:54] VITALS: BP 102/61
[2020-04-19] MEDS: HYDROCODONE/ACETAMINOPHEN 5-325 MG TABLET PO PRN ×3 (06:09→19:43)
[2020-04-19 06:42] LABS: BASOPHILS % (AUTO) 0.1 % (0.0-2.0); EOSINOPHILS % (AUTO) 0.4 % (1.0-6.0); HEMATOCRIT 33.3 % (36-46); HEMOGLOBIN 11.2 g/dL (12.0-16.0); LYMPHOCYTES # (AUTO) 1.2 K/uL (1.0-4.8); MEAN CORPUSCULAR HGB CONC 33.7 G/dL (31.0-37.0); MEAN CORPUSCULAR VOLUME 92 fL (80-100); MONOCYTES # (AUTO) 0.5 K/uL (0.1-1.0); MONOCYTES % (AUTO) 6.9 % (2.0-9.0); NEUTROPHILS % (AUTO) 77.6 % (40.0-70.0); PLATELET COUNT (AUTO) 317 K/uL (150-450); RED BLOOD CELL COUNT(AUTO) 3.62 MIL/uL (4.00-5.20); RED CELL DISTRIBUTION WIDTH 13.1 % (11.5-14.5)
[2020-04-19 07:20] LABS: ALANINE AMINOTRANSFERASE 27 U/L (12-78); ALKALINE PHOSPHATASE 44 U/L (46-116); ANION GAP 5 mmol/L (8-16); ASPARTATE AMINOTRANSFERASE 31 U/L (15-37); BILIRUBIN,TOTAL 0.3 mg/dL (0.1-1.0); C-REACTIVE PROTEIN QUANT 7.82 mg/dL (0.00-0.30); CALCIUM, TOTAL 8.3 mg/dL (8.8-10.5); CARBON DIOXIDE 33 mmol/L (22-29); CHLORIDE 104 mmol/L (98-107); CREATININE 0.85 mg/dL (0.60-1.30); FERRITIN 147 ng/mL (8-252); GLOMERULAR FILTR. RATE CALC > 60 mL/min (>60); GLUCOSE,RANDOM 98 mg/dL (70-110); LACTATE DEHYDROGENASE 415 U/L (81-234); POTASSIUM 3.5 mmol/L (3.5-5.1); SODIUM SERUM 142 mmol/L (136-145); TOTAL PROTEIN, SERUM 5.9 g/dL (6.4-8.2); UREA NITROGEN, BLOOD 18 mg/dL (7-18)
[2020-04-19 07:21] LABS: ALBUMIN 2.6 g/dL (3.4-5.0)
[2020-04-19 08:00] VITALS: BP 89/54
[2020-04-19] MEDS: DOCUSATE SODIUM 100 MG CAPSULE PO SCH ×2 (08:29→19:43)
[2020-04-19] MEDS: DULoxetine HCL 60 MG CAPSULE PO SCH (08:30)
[2020-04-19] MEDS: FAMOTIDINE 20 MG TABLET PO SCH (08:30)
[2020-04-19] MEDS: DEXAMETHASONE 4 MG TABLET PO SCH (08:30)
[2020-04-19] MEDS: ZINC SULFATE 220 MG CAPSULE PO SCH ×2 (08:30→19:43)
[2020-04-19] MEDS: ENOXAPARIN SODIUM 60 MG/0.6 ML PF SYRINGE SQ SCH ×2 (08:31→19:51)
[2020-04-19] MEDS: LamoTRIgine 25 MG TABLET PO SCH ×2 (08:31→19:42)
[2020-04-19 12:00] VITALS: BP 104/70
[2020-04-19] MEDS: AZITHROMYCIN 500 MG/NS 250 ML IV SCH (12:46)
[2020-04-19] MEDS: REMDESIVIR **INVESTIGATIONAL** 100 MG in SODIUM CHLORIDE 0.9% 230 ML IV SCH (14:26)
[2020-04-19 16:00] VITALS: BP 109/70
[2020-04-19] MEDS: PRAZOSIN HCL 2 MG CAPSULE PO SCH (19:48)
[2020-04-19] MEDS: OLANZapine 10 MG TABLET PO SCH (19:51)
[2020-04-19 20:00] VITALS: BP 103/69
[2020-04-20] VITALS (7 sets, daily range): BP systolic 93–110; BP diastolic 62–71
[2020-04-20] MEDS: HYDROCODONE/ACETAMINOPHEN 5-325 MG TABLET PO PRN ×3 (06:54→20:40)
[2020-04-20 07:00] LABS: BASOPHILS % (AUTO) 0.1 % (0.0-2.0); EOSINOPHILS % (AUTO) 1.1 % (1.0-6.0); HEMATOCRIT 34.1 % (36-46); HEMOGLOBIN 11.6 g/dL (12.0-16.0); LYMPHOCYTES # (AUTO) 1.1 K/uL (1.0-4.8); LYMPHOCYTES % (AUTO) 12.2 % (22.0-44.0); MEAN CORPUSCULAR HEMOGLOBIN 31.2 pg (26.0-34.0); MEAN CORPUSCULAR HGB CONC 34.1 G/dL (31.0-37.0); MEAN CORPUSCULAR VOLUME 92 fL (80-100); MONOCYTES # (AUTO) 0.6 K/uL (0.1-1.0); MONOCYTES % (AUTO) 6.7 % (2.0-9.0); NEUTROPHILS # (AUTO) 7.3 K/uL (1.8-7.7); NEUTROPHILS % (AUTO) 79.9 % (40.0-70.0); PLATELET COUNT (AUTO) 363 K/uL (150-450); RED BLOOD CELL COUNT(AUTO) 3.73 MIL/uL (4.00-5.20); RED CELL DISTRIBUTION WIDTH 13.2 % (11.5-14.5)
[2020-04-20 07:25] LABS: ALANINE AMINOTRANSFERASE 39 U/L (12-78); ALBUMIN 2.6 g/dL (3.4-5.0); ALKALINE PHOSPHATASE 49 U/L (46-116); ANION GAP 4 mmol/L (8-16); ASPARTATE AMINOTRANSFERASE 46 U/L (15-37); BILIRUBIN,TOTAL 0.3 mg/dL (0.1-1.0); C-REACTIVE PROTEIN QUANT 11.42 mg/dL (0.00-0.30); CALCIUM, TOTAL 8.8 mg/dL (8.8-10.5); CARBON DIOXIDE 31 mmol/L (22-29); CHLORIDE 105 mmol/L (98-107); CREATININE 0.78 mg/dL (0.60-1.30); GLOMERULAR FILTR. RATE CALC > 60 mL/min (>60); GLUCOSE,RANDOM 96 mg/dL (70-110); POTASSIUM 3.7 mmol/L (3.5-5.1); SODIUM SERUM 140 mmol/L (136-145); TOTAL PROTEIN, SERUM 6.2 g/dL (6.4-8.2); UREA NITROGEN, BLOOD 18 mg/dL (7-18)
[2020-04-20] MEDS: ENOXAPARIN SODIUM 60 MG/0.6 ML PF SYRINGE SQ SCH ×2 (08:47→20:27)
[2020-04-20] MEDS: ZINC SULFATE 220 MG CAPSULE PO SCH ×2 (08:48→20:27)
[2020-04-20] MEDS: FAMOTIDINE 20 MG TABLET PO SCH (08:48)
[2020-04-20] MEDS: DULoxetine HCL 60 MG CAPSULE PO SCH (08:48)
[2020-04-20] MEDS: LamoTRIgine 25 MG TABLET PO SCH ×2 (08:48→20:26)
[2020-04-20] MEDS: DEXAMETHASONE 4 MG TABLET PO SCH (08:48)
[2020-04-20] MEDS: GuaiFENesin/D-METHORPHAN [SUGAR-FREE] 200-20MG/10 ML SYRUP UDCUP PO PRN ×2 (08:48→20:28)
[2020-04-20] MEDS: DOCUSATE SODIUM 100 MG CAPSULE PO SCH ×2 (08:48→20:27)
[2020-04-20] MEDS: AZITHROMYCIN 500 MG/NS 250 ML IV SCH (12:18)
[2020-04-20] MEDS: OLANZapine 10 MG TABLET PO SCH (20:26)
[2020-04-20] MEDS: PRAZOSIN HCL 2 MG CAPSULE PO SCH (20:27)
[2020-04-21 03:48] VITALS: BP 98/66
[2020-04-21 06:31] LABS: BASOPHILS % (AUTO) 0.2 % (0.0-2.0); EOSINOPHILS % (AUTO) 1.6 % (1.0-6.0); HEMATOCRIT 35.4 % (36-46); HEMOGLOBIN 12.2 g/dL (12.0-16.0); LYMPHOCYTES % (AUTO) 11.3 % (22.0-44.0); MEAN CORPUSCULAR HEMOGLOBIN 31.9 pg (26.0-34.0); MEAN CORPUSCULAR HGB CONC 34.5 G/dL (31.0-37.0); MEAN CORPUSCULAR VOLUME 93 fL (80-100); MONOCYTES # (AUTO) 0.5 K/uL (0.1-1.0); NEUTROPHILS # (AUTO) 7.2 K/uL (1.8-7.7); NEUTROPHILS % (AUTO) 80.9 % (40.0-70.0); PLATELET COUNT (AUTO) 422 K/uL (150-450); RED BLOOD CELL COUNT(AUTO) 3.83 MIL/uL (4.00-5.20); RED CELL DISTRIBUTION WIDTH 13.2 % (11.5-14.5)
[2020-04-21 06:46] LABS: ANION GAP 7 mmol/L (8-16); CALCIUM, TOTAL 8.9 mg/dL (8.8-10.5); CARBON DIOXIDE 32 mmol/L (22-29); CHLORIDE 107 mmol/L (98-107); CREATININE 0.72 mg/dL (0.60-1.30); GLOMERULAR FILTR. RATE CALC > 60 mL/min (>60); GLUCOSE,RANDOM 105 mg/dL (70-110); POTASSIUM 4.1 mmol/L (3.5-5.1); SODIUM SERUM 146 mmol/L (136-145); UREA NITROGEN, BLOOD 14 mg/dL (7-18)
[2020-04-21 08:02] VITALS: BP 93/65
[2020-04-21] MEDS: FAMOTIDINE 20 MG TABLET PO SCH (09:14)
[2020-04-21] MEDS: DOCUSATE SODIUM 100 MG CAPSULE PO SCH ×2 (09:14→21:44)
[2020-04-21] MEDS: LamoTRIgine 25 MG TABLET PO SCH ×2 (09:14→21:44)
[2020-04-21] MEDS: DEXAMETHASONE 4 MG TABLET PO SCH (09:14)
[2020-04-21] MEDS: DULoxetine HCL 60 MG CAPSULE PO SCH (09:14)
[2020-04-21] MEDS: ZINC SULFATE 220 MG CAPSULE PO SCH ×2 (09:14→21:45)
[2020-04-21] MEDS: ENOXAPARIN SODIUM 60 MG/0.6 ML PF SYRINGE SQ SCH ×2 (09:15→21:44)
[2020-04-21] MEDS: GuaiFENesin/D-METHORPHAN [SUGAR-FREE] 200-20MG/10 ML SYRUP UDCUP PO PRN ×2 (09:35→21:44)
[2020-04-21 11:51] VITALS: BP 125/57
[2020-04-21] MEDS ORDERED: SODIUM CHLORIDE 0.9% 500 ML IV ONE (12:21)
[2020-04-21] MEDS: ASCORBIC ACID 500 MG TABLET PO SCH ×2 (12:22→21:44)
[2020-04-21] MEDS: AZITHROMYCIN 500 MG/NS 250 ML IV SCH (12:22)
[2020-04-21] MEDS: HYDROCODONE/ACETAMINOPHEN 5-325 MG TABLET PO PRN ×2 (12:38→21:45)
[2020-04-21 15:17] VITALS: BP 100/68
[2020-04-21 19:22] VITALS: BP 94/63
[2020-04-21] MEDS: OLANZapine 10 MG TABLET PO SCH (21:44)
[2020-04-21] MEDS: PRAZOSIN HCL 2 MG CAPSULE PO SCH (21:45)
[2020-04-21 23:51] VITALS: BP 95/65
[2020-04-22 04:00] VITALS: BP 97/71
[2020-04-22 06:13] LABS: BASOPHILS % (AUTO) 0.1 % (0.0-2.0); HEMATOCRIT 33.7 % (36-46); HEMOGLOBIN 11.5 g/dL (12.0-16.0); LYMPHOCYTES % (AUTO) 11.3 % (22.0-44.0); MEAN CORPUSCULAR HEMOGLOBIN 31.1 pg (26.0-34.0); MEAN CORPUSCULAR HGB CONC 34.1 G/dL (31.0-37.0); MEAN CORPUSCULAR VOLUME 91 fL (80-100); MONOCYTES # (AUTO) 0.7 K/uL (0.1-1.0); MONOCYTES % (AUTO) 7.9 % (2.0-9.0); NEUTROPHILS % (AUTO) 79.7 % (40.0-70.0); PLATELET COUNT (AUTO) 441 K/uL (150-450); RED BLOOD CELL COUNT(AUTO) 3.69 MIL/uL (4.00-5.20)
[2020-04-22 07:03] LABS: ALANINE AMINOTRANSFERASE 37 U/L (12-78); ALBUMIN 2.4 g/dL (3.4-5.0); ALKALINE PHOSPHATASE 58 U/L (46-116); ANION GAP 4 mmol/L (8-16); ASPARTATE AMINOTRANSFERASE 27 U/L (15-37); BILIRUBIN,TOTAL 0.2 mg/dL (0.1-1.0); C-REACTIVE PROTEIN QUANT 7.92 mg/dL (0.00-0.30); CALCIUM, TOTAL 8.7 mg/dL (8.8-10.5); CARBON DIOXIDE 33 mmol/L (22-29); CHLORIDE 107 mmol/L (98-107); CREATININE 0.82 mg/dL (0.60-1.30); FERRITIN 112 ng/mL (8-252); GLOMERULAR FILTR. RATE CALC > 60 mL/min (>60); GLUCOSE,RANDOM 118 mg/dL (70-110); POTASSIUM 3.7 mmol/L (3.5-5.1); SODIUM SERUM 144 mmol/L (136-145); TOTAL PROTEIN, SERUM 6.2 g/dL (6.4-8.2); UREA NITROGEN, BLOOD 12 mg/dL (7-18)
[2020-04-22 07:53] VITALS: BP 117/60
[2020-04-22] MEDS: DEXAMETHASONE 4 MG TABLET PO SCH (08:16)
[2020-04-22] MEDS: ZINC SULFATE 220 MG CAPSULE PO SCH ×2 (08:16→20:45)
[2020-04-22] MEDS: FAMOTIDINE 20 MG TABLET PO SCH (08:16)
[2020-04-22] MEDS: ASCORBIC ACID 500 MG TABLET PO SCH ×2 (08:16→20:46)
[2020-04-22] MEDS: GuaiFENesin/D-METHORPHAN [SUGAR-FREE] 200-20MG/10 ML SYRUP UDCUP PO PRN (08:16)
[2020-04-22] MEDS: DULoxetine HCL 60 MG CAPSULE PO SCH (08:16)
[2020-04-22] MEDS: LamoTRIgine 25 MG TABLET PO SCH ×2 (08:16→20:46)
[2020-04-22] MEDS: DOCUSATE SODIUM 100 MG CAPSULE PO SCH ×2 (08:16→20:45)
[2020-04-22] MEDS: ENOXAPARIN SODIUM 60 MG/0.6 ML PF SYRINGE SQ SCH ×2 (08:17→20:46)
[2020-04-22] MEDS: HYDROCODONE/ACETAMINOPHEN 5-325 MG TABLET PO PRN ×3 (08:32→20:45)
[2020-04-22 11:24] VITALS: BP 118/51
[2020-04-22] MEDS: AZITHROMYCIN 500 MG/NS 250 ML IV SCH (12:01)
[2020-04-22 15:24] VITALS: BP 102/66
[2020-04-22 20:13] VITALS: BP 107/51
[2020-04-22] MEDS: BENZONATATE 100 MG CAPSULE PO PRN (20:45)
[2020-04-22] MEDS: PRAZOSIN HCL 2 MG CAPSULE PO SCH (20:46)
[2020-04-22] MEDS: OLANZapine 10 MG TABLET PO SCH (20:46)
[2020-04-23] VITALS (7 sets, daily range): BP systolic 92–121; BP diastolic 63–70
[2020-04-23 06:33] LABS: BASOPHILS % (AUTO) 0.6 % (0.0-2.0); EOSINOPHILS % (AUTO) 0.4 % (1.0-6.0); HEMATOCRIT 35.5 % (36-46); LYMPHOCYTES # (AUTO) 1.4 K/uL (1.0-4.8); LYMPHOCYTES % (AUTO) 13.5 % (22.0-44.0); MEAN CORPUSCULAR HEMOGLOBIN 31.2 pg (26.0-34.0); MEAN CORPUSCULAR HGB CONC 33.9 G/dL (31.0-37.0); MEAN CORPUSCULAR VOLUME 92 fL (80-100); MONOCYTES # (AUTO) 0.7 K/uL (0.1-1.0); MONOCYTES % (AUTO) 6.9 % (2.0-9.0); NEUTROPHILS # (AUTO) 8.2 K/uL (1.8-7.7); NEUTROPHILS % (AUTO) 78.6 % (40.0-70.0); PLATELET COUNT (AUTO) 390 K/uL (150-450); RED BLOOD CELL COUNT(AUTO) 3.86 MIL/uL (4.00-5.20); RED CELL DISTRIBUTION WIDTH 13.2 % (11.5-14.5)
[2020-04-23 07:38] LABS: ALANINE AMINOTRANSFERASE 40 U/L (12-78); ALBUMIN 2.5 g/dL (3.4-5.0); ALKALINE PHOSPHATASE 61 U/L (46-116); ANION GAP 4 mmol/L (8-16); ASPARTATE AMINOTRANSFERASE 32 U/L (15-37); BILIRUBIN,TOTAL 0.3 mg/dL (0.1-1.0); C-REACTIVE PROTEIN QUANT 5.84 mg/dL (0.00-0.30); CALCIUM, TOTAL 9.2 mg/dL (8.8-10.5); CARBON DIOXIDE 33 mmol/L (22-29); CHLORIDE 105 mmol/L (98-107); CREATININE 0.85 mg/dL (0.60-1.30); GLOMERULAR FILTR. RATE CALC > 60 mL/min (>60); GLUCOSE,RANDOM 91 mg/dL (70-110); POTASSIUM 4.1 mmol/L (3.5-5.1); SODIUM SERUM 142 mmol/L (136-145); TOTAL PROTEIN, SERUM 6.4 g/dL (6.4-8.2); UREA NITROGEN, BLOOD 16 mg/dL (7-18)
[2020-04-23] MEDS: DULoxetine HCL 60 MG CAPSULE PO SCH (09:30)
[2020-04-23] MEDS: ZINC SULFATE 220 MG CAPSULE PO SCH ×2 (09:30→21:17)
[2020-04-23] MEDS: ASCORBIC ACID 500 MG TABLET PO SCH ×2 (09:30→21:15)
[2020-04-23] MEDS: ENOXAPARIN SODIUM 60 MG/0.6 ML PF SYRINGE SQ SCH ×2 (09:30→21:16)
[2020-04-23] MEDS: FAMOTIDINE 20 MG TABLET PO SCH (09:31)
[2020-04-23] MEDS: DEXAMETHASONE 4 MG TABLET PO SCH (09:32)
[2020-04-23] MEDS: LamoTRIgine 25 MG TABLET PO SCH ×2 (09:32→21:14)
[2020-04-23] MEDS: DOCUSATE SODIUM 100 MG CAPSULE PO SCH ×2 (09:37→21:14)
[2020-04-23] MEDS: HYDROCODONE/ACETAMINOPHEN 5-325 MG TABLET PO PRN ×3 (10:05→23:13)
[2020-04-23] MEDS: AZITHROMYCIN 500 MG/NS 250 ML IV SCH (13:39)
[2020-04-23] MEDS: PRAZOSIN HCL 2 MG CAPSULE PO SCH (21:15)
[2020-04-23] MEDS: OLANZapine 10 MG TABLET PO SCH (21:17)
[2020-04-23] MEDS: GuaiFENesin/D-METHORPHAN [SUGAR-FREE] 200-20MG/10 ML SYRUP UDCUP PO PRN (23:13)
[2020-04-24 03:51] VITALS: BP 103/67
[2020-04-24 05:49] LABS: BASOPHILS % (AUTO) 0.6 % (0.0-2.0); EOSINOPHILS % (AUTO) 0.1 % (1.0-6.0); HEMATOCRIT 37.1 % (36-46); HEMOGLOBIN 12.2 g/dL (12.0-16.0); LYMPHOCYTES # (AUTO) 1.6 K/uL (1.0-4.8); LYMPHOCYTES % (AUTO) 16.5 % (22.0-44.0); MEAN CORPUSCULAR HEMOGLOBIN 30.4 pg (26.0-34.0); MEAN CORPUSCULAR HGB CONC 32.9 G/dL (31.0-37.0); MEAN CORPUSCULAR VOLUME 93 fL (80-100); MONOCYTES # (AUTO) 0.3 K/uL (0.1-1.0); MONOCYTES % (AUTO) 3.4 % (2.0-9.0); NEUTROPHILS # (AUTO) 7.7 K/uL (1.8-7.7); NEUTROPHILS % (AUTO) 79.4 % (40.0-70.0); PLATELET COUNT (AUTO) 437 K/uL (150-450); RED BLOOD CELL COUNT(AUTO) 4.01 MIL/uL (4.00-5.20); RED CELL DISTRIBUTION WIDTH 13.3 % (11.5-14.5)
[2020-04-24 06:38] LABS: ALANINE AMINOTRANSFERASE 41 U/L (12-78); ALBUMIN 2.6 g/dL (3.4-5.0); ALKALINE PHOSPHATASE 61 U/L (46-116); ANION GAP 8 mmol/L (8-16); ASPARTATE AMINOTRANSFERASE 24 U/L (15-37); BILIRUBIN,TOTAL 0.2 mg/dL (0.1-1.0); C-REACTIVE PROTEIN QUANT 3.32 mg/dL (0.00-0.30); CALCIUM, TOTAL 8.6 mg/dL (8.8-10.5); CARBON DIOXIDE 31 mmol/L (22-29); CHLORIDE 102 mmol/L (98-107); CREATININE 0.93 mg/dL (0.60-1.30); FERRITIN 87 ng/mL (8-252); GLOMERULAR FILTR. RATE CALC > 60 mL/min (>60); GLUCOSE,RANDOM 156 mg/dL (70-110); LACTATE DEHYDROGENASE 311 U/L (81-234); POTASSIUM 3.5 mmol/L (3.5-5.1); SODIUM SERUM 141 mmol/L (136-145); TOTAL PROTEIN, SERUM 6.5 g/dL (6.4-8.2); UREA NITROGEN, BLOOD 16 mg/dL (7-18)
[2020-04-24] MEDS: DOCUSATE SODIUM 100 MG CAPSULE PO SCH ×2 (08:14→20:29)
[2020-04-24] MEDS: ZINC SULFATE 220 MG CAPSULE PO SCH ×2 (08:14→20:30)
[2020-04-24] MEDS: FAMOTIDINE 20 MG TABLET PO SCH (08:15)
[2020-04-24] MEDS: DULoxetine HCL 60 MG CAPSULE PO SCH (08:15)
[2020-04-24] MEDS: ASCORBIC ACID 500 MG TABLET PO SCH ×2 (08:15→20:30)
[2020-04-24] MEDS: DEXAMETHASONE 4 MG TABLET PO SCH (08:16)
[2020-04-24] MEDS: LamoTRIgine 25 MG TABLET PO SCH ×2 (08:16→20:29)
[2020-04-24] MEDS: ENOXAPARIN SODIUM 60 MG/0.6 ML PF SYRINGE SQ SCH ×2 (08:17→20:30)
[2020-04-24] MEDS: GuaiFENesin/D-METHORPHAN [SUGAR-FREE] 200-20MG/10 ML SYRUP UDCUP PO PRN ×2 (08:27→20:31)
[2020-04-24] MEDS: HYDROCODONE/ACETAMINOPHEN 5-325 MG TABLET PO PRN ×2 (08:28→15:22)
[2020-04-24 08:39] LABS: ERYTHROCYTE SEDIMENTATION RATE 100 MM/HR (0-20)
[2020-04-24 08:41] VITALS: BP 104/73
[2020-04-24 12:03] VITALS: BP 106/71
[2020-04-24] MEDS: AZITHROMYCIN 500 MG/NS 250 ML IV SCH (15:15)
[2020-04-24] MEDS: QUEtiapine FUMARATE 25 MG TABLET PO SCH ×2 (15:15→20:30)
[2020-04-24 16:20] VITALS: BP 101/71
[2020-04-24 19:29] VITALS: BP 103/68
[2020-04-24] MEDS: PRAZOSIN HCL 2 MG CAPSULE PO SCH (20:29)
[2020-04-24] MEDS: OLANZapine 10 MG TABLET PO SCH (20:30)
[2020-04-25 00:03] VITALS: BP 122/58
[2020-04-25 04:36] VITALS: BP 105/70
[2020-04-25] MEDS: DOCUSATE SODIUM 100 MG CAPSULE PO SCH ×2 (08:15→20:04)
[2020-04-25] MEDS: ENOXAPARIN SODIUM 60 MG/0.6 ML PF SYRINGE SQ SCH ×2 (08:16→20:04)
[2020-04-25] MEDS: QUEtiapine FUMARATE 25 MG TABLET PO SCH (08:16)
[2020-04-25] MEDS: DEXAMETHASONE 4 MG TABLET PO SCH (08:16)
[2020-04-25] MEDS: HYDROCODONE/ACETAMINOPHEN 5-325 MG TABLET PO PRN ×3 (08:17→20:42)
[2020-04-25] MEDS: LamoTRIgine 25 MG TABLET PO SCH ×2 (08:17→20:04)
[2020-04-25] MEDS: FAMOTIDINE 20 MG TABLET PO SCH (08:17)
[2020-04-25] MEDS: ZINC SULFATE 220 MG CAPSULE PO SCH ×2 (08:17→20:04)
[2020-04-25] MEDS: ASCORBIC ACID 500 MG TABLET PO SCH ×2 (08:17→20:03)
[2020-04-25] MEDS: DULoxetine HCL 60 MG CAPSULE PO SCH (08:17)
[2020-04-25 08:57] VITALS: BP 112/69
[2020-04-25 11:37] VITALS: BP 104/73
[2020-04-25] MEDS: ACETAMINOPHEN 325 MG TABLET PO PRN (14:26)
[2020-04-25 15:26] VITALS: BP 109/72
[2020-04-25 19:53] VITALS: BP 95/61
[2020-04-25] MEDS: QUEtiapine FUMARATE 100 MG TABLET PO SCH (20:04)
[2020-04-25] MEDS: OLANZapine 10 MG TABLET PO SCH (20:04)
[2020-04-25] MEDS: PRAZOSIN HCL 2 MG CAPSULE PO SCH (20:04)
[2020-04-26] VITALS (7 sets, daily range): BP systolic 92–103; BP diastolic 59–86
[2020-04-26 06:44] LABS: BASOPHILS % (AUTO) 0.4 % (0.0-2.0); EOSINOPHILS % (AUTO) 0.1 % (1.0-6.0); HEMATOCRIT 37.5 % (36-46); HEMOGLOBIN 12.8 g/dL (12.0-16.0); LYMPHOCYTES # (AUTO) 2.2 K/uL (1.0-4.8); LYMPHOCYTES % (AUTO) 20.1 % (22.0-44.0); MEAN CORPUSCULAR HEMOGLOBIN 31.4 pg (26.0-34.0); MEAN CORPUSCULAR HGB CONC 34.1 G/dL (31.0-37.0); MEAN CORPUSCULAR VOLUME 92 fL (80-100); MONOCYTES # (AUTO) 0.6 K/uL (0.1-1.0); NEUTROPHILS # (AUTO) 7.9 K/uL (1.8-7.7); NEUTROPHILS % (AUTO) 73.4 % (40.0-70.0); PLATELET COUNT (AUTO) 369 K/uL (150-450); RED BLOOD CELL COUNT(AUTO) 4.07 MIL/uL (4.00-5.20); RED CELL DISTRIBUTION WIDTH 13.1 % (11.5-14.5)
[2020-04-26 07:02] LABS: ALANINE AMINOTRANSFERASE 53 U/L (12-78); ALBUMIN 2.8 g/dL (3.4-5.0); ALKALINE PHOSPHATASE 69 U/L (46-116); ANION GAP 6 mmol/L (8-16); ASPARTATE AMINOTRANSFERASE 28 U/L (15-37); BILIRUBIN,TOTAL 0.2 mg/dL (0.1-1.0); C-REACTIVE PROTEIN QUANT 0.88 mg/dL (0.00-0.30); CALCIUM, TOTAL 8.9 mg/dL (8.8-10.5); CARBON DIOXIDE 32 mmol/L (22-29); CHLORIDE 100 mmol/L (98-107); CREATININE 0.94 mg/dL (0.60-1.30); GLOMERULAR FILTR. RATE CALC > 60 mL/min (>60); GLUCOSE,RANDOM 110 mg/dL (70-110); POTASSIUM 3.5 mmol/L (3.5-5.1); SODIUM SERUM 138 mmol/L (136-145); TOTAL PROTEIN, SERUM 6.6 g/dL (6.4-8.2); UREA NITROGEN, BLOOD 26 mg/dL (7-18)
[2020-04-26] MEDS: LamoTRIgine 25 MG TABLET PO SCH ×2 (08:41→20:36)
[2020-04-26] MEDS: ASCORBIC ACID 500 MG TABLET PO SCH ×2 (08:41→21:05)
[2020-04-26] MEDS: ZINC SULFATE 220 MG CAPSULE PO SCH ×2 (08:41→21:05)
[2020-04-26] MEDS: FAMOTIDINE 20 MG TABLET PO SCH (08:41)
[2020-04-26] MEDS: DOCUSATE SODIUM 100 MG CAPSULE PO SCH ×2 (08:41→20:35)
[2020-04-26] MEDS: DULoxetine HCL 60 MG CAPSULE PO SCH (08:42)
[2020-04-26] MEDS: HYDROCODONE/ACETAMINOPHEN 5-325 MG TABLET PO PRN ×3 (08:42→20:35)
[2020-04-26] MEDS: ENOXAPARIN SODIUM 60 MG/0.6 ML PF SYRINGE SQ SCH ×2 (08:42→20:35)
[2020-04-26] MEDS: QUEtiapine FUMARATE 100 MG TABLET PO SCH ×2 (08:42→20:36)
[2020-04-26] MEDS ORDERED: MAGNESIUM CITRATE 300 ML ORAL SOLUTION PO ONE (11:30)
[2020-04-26] MEDS: OLANZapine 10 MG TABLET PO SCH (20:36)
[2020-04-26] MEDS: PRAZOSIN HCL 2 MG CAPSULE PO SCH (20:36)
[2020-04-26] MEDS: GuaiFENesin/D-METHORPHAN [SUGAR-FREE] 200-20MG/10 ML SYRUP UDCUP PO PRN (20:37)
[2020-04-27 03:57] VITALS: BP 102/69
[2020-04-27] MEDS: HYDROCODONE/ACETAMINOPHEN 5-325 MG TABLET PO PRN ×3 (05:15→21:50)
[2020-04-27 07:49] VITALS: BP 99/67
[2020-04-27] MEDS: ENOXAPARIN SODIUM 60 MG/0.6 ML PF SYRINGE SQ SCH ×2 (08:32→20:31)
[2020-04-27] MEDS: DULoxetine HCL 60 MG CAPSULE PO SCH (08:32)
[2020-04-27] MEDS: LamoTRIgine 25 MG TABLET PO SCH ×2 (08:32→20:30)
[2020-04-27] MEDS: FAMOTIDINE 20 MG TABLET PO SCH (08:32)
[2020-04-27] MEDS: ASCORBIC ACID 500 MG TABLET PO SCH ×2 (08:33→20:31)
[2020-04-27] MEDS: QUEtiapine FUMARATE 100 MG TABLET PO SCH ×2 (08:33→20:30)
[2020-04-27] MEDS: ZINC SULFATE 220 MG CAPSULE PO SCH ×2 (08:33→20:31)
[2020-04-27] MEDS: DOCUSATE SODIUM 100 MG CAPSULE PO SCH ×2 (08:33→20:30)
[2020-04-27 11:24] VITALS: BP 104/69
[2020-04-27 16:08] VITALS: BP 97/61
[2020-04-27 19:37] VITALS: BP 145/55
[2020-04-27] MEDS: OLANZapine 10 MG TABLET PO SCH (20:30)
[2020-04-27] MEDS: PRAZOSIN HCL 2 MG CAPSULE PO SCH (20:31)
[2020-04-27 23:47] VITALS: BP 107/65
[2020-04-28 03:32] VITALS: BP 101/58
[2020-04-28] MEDS: HYDROCODONE/ACETAMINOPHEN 5-325 MG TABLET PO PRN ×3 (06:13→21:11)
[2020-04-28 07:13] LABS: ANION GAP 7 mmol/L (8-16); C-REACTIVE PROTEIN QUANT 2.99 mg/dL (0.00-0.30); CALCIUM, TOTAL 8.9 mg/dL (8.8-10.5); CARBON DIOXIDE 31 mmol/L (22-29); CHLORIDE 99 mmol/L (98-107); CREATININE 0.92 mg/dL (0.60-1.30); FERRITIN 82 ng/mL (8-252); GLOMERULAR FILTR. RATE CALC > 60 mL/min (>60); GLUCOSE,RANDOM 103 mg/dL (70-110); SODIUM SERUM 137 mmol/L (136-145); UREA NITROGEN, BLOOD 19 mg/dL (7-18)
[2020-04-28] MEDS: DULoxetine HCL 60 MG CAPSULE PO SCH (08:05)
[2020-04-28] MEDS: ASCORBIC ACID 500 MG TABLET PO SCH ×2 (08:05→20:10)
[2020-04-28] MEDS: DOCUSATE SODIUM 100 MG CAPSULE PO SCH ×2 (08:05→20:10)
[2020-04-28] MEDS: LamoTRIgine 25 MG TABLET PO SCH ×2 (08:05→20:10)
[2020-04-28] MEDS: ZINC SULFATE 220 MG CAPSULE PO SCH ×2 (08:05→20:10)
[2020-04-28] MEDS: QUEtiapine FUMARATE 100 MG TABLET PO SCH ×2 (08:06→20:10)
[2020-04-28] MEDS: FAMOTIDINE 20 MG TABLET PO SCH (08:06)
[2020-04-28] MEDS: ENOXAPARIN SODIUM 60 MG/0.6 ML PF SYRINGE SQ SCH ×2 (08:06→20:11)
[2020-04-28 08:15] VITALS: BP 106/71
[2020-04-28 12:11] VITALS: BP 91/50
[2020-04-28] MEDS: BISACODYL 10 MG RECTAL RECTAL SUPPOSITORY PR PRN ×2 (15:50→15:53)
[2020-04-28] MEDS: DEXAMETHASONE 2 MG TABLET PO SCH (15:52)
[2020-04-28 17:48] VITALS: BP 98/67
[2020-04-28 19:48] VITALS: BP 99/68
[2020-04-28] MEDS: OLANZapine 10 MG TABLET PO SCH (20:10)
[2020-04-28] MEDS: PRAZOSIN HCL 2 MG CAPSULE PO SCH (20:11)
[2020-04-28 23:27] VITALS: BP 94/57
[2020-04-29 04:43] VITALS: BP 108/73
[2020-04-29] MEDS: HYDROCODONE/ACETAMINOPHEN 5-325 MG TABLET PO PRN ×3 (05:36→20:20)
[2020-04-29 08:25] VITALS: BP 105/73
[2020-04-29] MEDS: DULoxetine HCL 60 MG CAPSULE PO SCH (09:03)
[2020-04-29] MEDS: DOCUSATE SODIUM 100 MG CAPSULE PO SCH ×2 (09:03→20:04)
[2020-04-29] MEDS: DEXAMETHASONE 2 MG TABLET PO SCH (09:04)
[2020-04-29] MEDS: QUEtiapine FUMARATE 100 MG TABLET PO SCH ×2 (09:05→20:04)
[2020-04-29] MEDS: FAMOTIDINE 20 MG TABLET PO SCH (09:05)
[2020-04-29] MEDS: ASCORBIC ACID 500 MG TABLET PO SCH ×2 (09:05→20:19)
[2020-04-29] MEDS: LamoTRIgine 25 MG TABLET PO SCH ×2 (09:05→20:05)
[2020-04-29] MEDS: ZINC SULFATE 220 MG CAPSULE PO SCH ×2 (09:06→20:04)
[2020-04-29] MEDS: ENOXAPARIN SODIUM 60 MG/0.6 ML PF SYRINGE SQ SCH ×2 (09:06→20:05)
[2020-04-29] MEDS: ALBUTEROL SULFATE HFA 90 MCG/PUFF 8 GM INHALER IH PRN ×2 (09:19→15:09)
[2020-04-29 11:36] LABS: ANION GAP 6 mmol/L (8-16); CALCIUM, TOTAL 8.9 mg/dL (8.8-10.5); CARBON DIOXIDE 29 mmol/L (22-29); CHLORIDE 103 mmol/L (98-107); GLOMERULAR FILTR. RATE CALC > 60 mL/min (>60); GLUCOSE,RANDOM 126 mg/dL (70-110); POTASSIUM 3.9 mmol/L (3.5-5.1); SODIUM SERUM 138 mmol/L (136-145); UREA NITROGEN, BLOOD 17 mg/dL (7-18)
[2020-04-29 11:38] LABS: C-REACTIVE PROTEIN QUANT 1.96 mg/dL (0.00-0.30)
[2020-04-29 12:14] VITALS: BP 105/63
[2020-04-29 16:06] VITALS: BP 121/64
[2020-04-29 19:57] VITALS: BP 107/74
[2020-04-29] MEDS: OLANZapine 10 MG TABLET PO SCH (20:06)
[2020-04-29] MEDS: PRAZOSIN HCL 2 MG CAPSULE PO SCH (20:23)
[2020-04-30 00:48] VITALS: BP 126/70
[2020-04-30 05:14] VITALS: BP 119/76
[2020-04-30] MEDS: HYDROCODONE/ACETAMINOPHEN 5-325 MG TABLET PO PRN ×3 (05:39→21:48)
[2020-04-30] MEDS: ALBUTEROL SULFATE HFA 90 MCG/PUFF 8 GM INHALER IH PRN ×2 (05:40→11:30)
[2020-04-30 07:36] VITALS: BP 108/72
[2020-04-30] MEDS: DEXAMETHASONE 2 MG TABLET PO SCH (08:07)
[2020-04-30] MEDS: DOCUSATE SODIUM 100 MG CAPSULE PO SCH ×2 (08:07→21:39)
[2020-04-30] MEDS: DULoxetine HCL 60 MG CAPSULE PO SCH (08:07)
[2020-04-30] MEDS: QUEtiapine FUMARATE 100 MG TABLET PO SCH ×2 (08:08→21:39)
[2020-04-30] MEDS: ASCORBIC ACID 500 MG TABLET PO SCH ×2 (08:08→21:39)
[2020-04-30] MEDS: FAMOTIDINE 20 MG TABLET PO SCH (08:08)
[2020-04-30] MEDS: LamoTRIgine 25 MG TABLET PO SCH ×2 (08:08→21:40)
[2020-04-30] MEDS: ENOXAPARIN SODIUM 60 MG/0.6 ML PF SYRINGE SQ SCH ×2 (08:09→21:41)
[2020-04-30] MEDS: ZINC SULFATE 220 MG CAPSULE PO SCH ×2 (08:09→21:39)
[2020-04-30 11:15] VITALS: BP 129/84
[2020-04-30 15:16] VITALS: BP 115/69
[2020-04-30 19:50] VITALS: BP 111/73
[2020-04-30] MEDS: OLANZapine 10 MG TABLET PO SCH (21:39)
[2020-04-30] MEDS: PRAZOSIN HCL 2 MG CAPSULE PO SCH (21:39)
[2020-05-01 05:21] VITALS: BP 108/65
[2020-05-01] MEDS: HYDROCODONE/ACETAMINOPHEN 5-325 MG TABLET PO PRN ×3 (06:03→21:00)
[2020-05-01] MEDS: ALBUTEROL SULFATE HFA 90 MCG/PUFF 8 GM INHALER IH PRN (06:07)
[2020-05-01 08:19] VITALS: BP 93/73
[2020-05-01] MEDS: DOCUSATE SODIUM 100 MG CAPSULE PO SCH ×2 (09:07→20:27)
[2020-05-01] MEDS: DEXAMETHASONE 2 MG TABLET PO SCH (09:08)
[2020-05-01] MEDS: DULoxetine HCL 60 MG CAPSULE PO SCH (09:08)
[2020-05-01] MEDS: BENZONATATE 100 MG CAPSULE PO PRN (09:08)
[2020-05-01] MEDS: FAMOTIDINE 20 MG TABLET PO SCH (09:08)
[2020-05-01] MEDS: ZINC SULFATE 220 MG CAPSULE PO SCH ×2 (09:08→20:28)
[2020-05-01] MEDS: LamoTRIgine 25 MG TABLET PO SCH ×2 (09:08→20:28)
[2020-05-01] MEDS: ASCORBIC ACID 500 MG TABLET PO SCH ×2 (09:09→20:28)
[2020-05-01] MEDS: ENOXAPARIN SODIUM 60 MG/0.6 ML PF SYRINGE SQ SCH ×2 (09:09→20:29)
[2020-05-01] MEDS: QUEtiapine FUMARATE 100 MG TABLET PO SCH ×2 (09:09→21:00)
[2020-05-01 12:00] VITALS: BP 104/78
[2020-05-01] MEDS ORDERED: INFLUENZA VIRUS VACCINE QVS 2020-21 (6MO+)/PF 60 MCG/0.5 ML SYRINGE IM ONE (15:30)
[2020-05-01 18:39] VITALS: BP 100/82
[2020-05-01 19:51] VITALS: BP 129/78
[2020-05-01] MEDS: PRAZOSIN HCL 2 MG CAPSULE PO SCH (20:28)
[2020-05-01] MEDS: OLANZapine 10 MG TABLET PO SCH (20:28)
[2020-05-01 23:55] VITALS: BP 104/70
[2020-05-02 05:14] VITALS: BP 105/49
[2020-05-02 06:08] LABS: BASOPHILS % (AUTO) 0.4 % (0.0-2.0); EOSINOPHILS % (AUTO) 0.3 % (1.0-6.0); HEMATOCRIT 37.5 % (36-46); HEMOGLOBIN 12.5 g/dL (12.0-16.0); LYMPHOCYTES # (AUTO) 2.4 K/uL (1.0-4.8); LYMPHOCYTES % (AUTO) 21.3 % (22.0-44.0); MEAN CORPUSCULAR HEMOGLOBIN 30.8 pg (26.0-34.0); MEAN CORPUSCULAR HGB CONC 33.2 G/dL (31.0-37.0); MEAN CORPUSCULAR VOLUME 93 fL (80-100); MONOCYTES # (AUTO) 0.6 K/uL (0.1-1.0); MONOCYTES % (AUTO) 5.6 % (2.0-9.0); NEUTROPHILS # (AUTO) 8.3 K/uL (1.8-7.7); NEUTROPHILS % (AUTO) 72.4 % (40.0-70.0); PLATELET COUNT (AUTO) 222 K/uL (150-450); RED BLOOD CELL COUNT(AUTO) 4.05 MIL/uL (4.00-5.20); RED CELL DISTRIBUTION WIDTH 13.6 % (11.5-14.5)
[2020-05-02] MEDS: HYDROCODONE/ACETAMINOPHEN 5-325 MG TABLET PO PRN ×2 (06:16→13:13)
[2020-05-02 06:28] LABS: ANION GAP 7 mmol/L (8-16); C-REACTIVE PROTEIN QUANT 0.37 mg/dL (0.00-0.30); CALCIUM, TOTAL 9.4 mg/dL (8.8-10.5); CARBON DIOXIDE 31 mmol/L (22-29); CHLORIDE 104 mmol/L (98-107); CREATININE 0.74 mg/dL (0.60-1.30); GLOMERULAR FILTR. RATE CALC > 60 mL/min (>60); GLUCOSE,RANDOM 85 mg/dL (70-110); SODIUM SERUM 142 mmol/L (136-145); UREA NITROGEN, BLOOD 20 mg/dL (7-18)
[2020-05-02 08:00] VITALS: BP 105/72
[2020-05-02] MEDS: DOCUSATE SODIUM 100 MG CAPSULE PO SCH (08:59)
[2020-05-02] MEDS: DEXAMETHASONE 2 MG TABLET PO SCH (09:00)
[2020-05-02] MEDS: DULoxetine HCL 60 MG CAPSULE PO SCH (09:00)
[2020-05-02] MEDS: FAMOTIDINE 20 MG TABLET PO SCH (09:01)
[2020-05-02] MEDS: ZINC SULFATE 220 MG CAPSULE PO SCH (09:01)
[2020-05-02] MEDS: ASCORBIC ACID 500 MG TABLET PO SCH (09:01)
[2020-05-02] MEDS: LamoTRIgine 25 MG TABLET PO SCH (09:01)
[2020-05-02] MEDS: QUEtiapine FUMARATE 100 MG TABLET PO SCH (09:02)
[2020-05-02] MEDS: ENOXAPARIN SODIUM 60 MG/0.6 ML PF SYRINGE SQ SCH (09:02)
[2020-05-02] MEDS ORDERED: ASCO500 PO (11:33)
[2020-05-02] MEDS ORDERED: DULO-8 PO (11:34)
[2020-05-02] MEDS ORDERED: FAMO20 PO (11:35)
[2020-05-02] MEDS ORDERED: PRAZ1 PO (11:37)
[2020-05-02] MEDS ORDERED: QUET200T PO (11:38)
[2020-05-02] MEDS ORDERED: ZINC220C14 PO (11:38)
[2020-05-02 11:50] VITALS: BP 110/64
[2020-05-02] MEDS: ALBUTEROL SULFATE HFA 90 MCG/PUFF 8 GM INHALER IH PRN (13:09)
== END 2020-05-02 13:30 | DRG 177 ==
LOC: EMS 09:51 → 5N 12:17
PROVIDERS: ADMIT Internal Medicine; ATTEND Internal Medicine
PROC: XW033E5 Introduction of Remdesivir Anti-infective into Peripheral Vein, Percutaneous Approach, New Technology Group 5 (ICD-10-PCS; 2020-04-15)
PROC: XW033E5 Introduction of Remdesivir Anti-infective into Peripheral Vein, Percutaneous Approach, New Technology Group 5 (ICD-10-PCS; 2020-04-16)
PROC: 30233K1 Transfusion of Nonautologous Frozen Plasma into Peripheral Vein, Percutaneous Approach (ICD-10-PCS; principal; 2020-04-17)
PROC: XW033E5 Introduction of Remdesivir Anti-infective into Peripheral Vein, Percutaneous Approach, New Technology Group 5 (ICD-10-PCS; 2020-04-17)
PROC: XW033E5 Introduction of Remdesivir Anti-infective into Peripheral Vein, Percutaneous Approach, New Technology Group 5 (ICD-10-PCS; 2020-04-18)
PROC: XW033E5 Introduction of Remdesivir Anti-infective into Peripheral Vein, Percutaneous Approach, New Technology Group 5 (ICD-10-PCS; 2020-04-19)
DX: U07.1 COVID-19 (principal); J12.89 Other viral pneumonia; J96.01 Acute respiratory failure with hypoxia; F31.4 Bipolar disorder, current episode depressed, severe, without psychotic features; D72.810 Lymphocytopenia; F17.210 Nicotine dependence, cigarettes, uncomplicated; F43.10 Post-traumatic stress disorder, unspecified; F41.9 Anxiety disorder, unspecified; B19.20 Unspecified viral hepatitis C without hepatic coma; F11.90 Opioid use, unspecified, uncomplicated; F19.10 Other psychoactive substance abuse, uncomplicated; Z79.899 Other long term (current) drug therapy; E78.5 Hyperlipidemia, unspecified; R74.02 Elevation of levels of lactic acid dehydrogenase [LDH]; F43.21 Adjustment disorder with depressed mood; R53.81 Other malaise
CPT/HCPCS: 70450; 74018; 82728; 82948; 83605; 83615; 83735; 85007; 85379; 85651; 86140; 86900; 86901; 86927; 87040; 87426; 90686; 90732; 93005; J0456; J1100; J1644; J1650; J3535; J7030; J7040; J7050; J8540; 36415-L1; 36415-TC; 71045-TC